=== PATIENT | female | born 1960 | race Caucasian/White ===

== ENCOUNTER → 2016-06-24 | Outpatient (CLI) | payer OTHER ==
[~2016-06-24] MED LIST: DVN80125 PO; HYDR12.56 PO; PANT40TA PO
--- NOTE | 2016-06-24 09:35 | DIAGNOSTIC IMAGING REPORT ---
(BARIUM SWALLOW) ESOPHAGUS CLINICAL HISTORY: R13.10 [id number] COMPARISON STUDY: None. FLUOROSCOPY TIME: 1.1 minute. 25 images submitted.. FINDINGS: The patient swallowed barium without difficulty. The contours of the hypopharynx are within normal limits. The esophagus is normal in course and caliber. Small hiatus hernia. Mild esophageal dysmotility. The barium tablet passed without difficulty. Severe gastroesophageal reflux. IMPRESSION: 1. Severe gastroesophageal reflux. 2. Small hiatus hernia. 3. Mild esophageal dysmotility. Electronically signed by: Chandrakant Javier M.D. 06/24/2016 9:34 AM Dictated Date/Time: 06/24/2016 9:32 AM
== END | disposition home or self-care (01) ==
LOC: C.RAD 08:06
PROVIDERS: ATTEND Family Medicine
DX: R13.10 Dysphagia, unspecified (principal); K21.9 Gastro-esophageal reflux disease without esophagitis; K44.9 Diaphragmatic hernia without obstruction or gangrene; K22.4 Dyskinesia of esophagus

== ENCOUNTER 2016-11-02 13:57 | Emergency (ER) | payer OTHER ==
[~2016-11-02] VITALS: Ht 170.2 cm; Wt 110.8 kg
[~2016-11-02 13:57] MED LIST changes: -PANT40TA PO
[2016-11-02 14:02] VITALS: Ht 170.2 cm; Wt 110.8 kg
[2016-11-02] MEDS ORDERED: ASPIRIN 81 MG CHEW PO STA (14:17)
--- NOTE | 2016-11-02 14:21 | EMERGENCY ROOM VISIT NOTE ---
History First contact with patient: 14:09 Chief Complaint: CHEST PAIN Stated Complaint: CHEST PAINS, ARM AND NECK PAIN History of Present Illness The patient is a 56 year old female who presents to the Emergency Room via private vehicle accompanied by family with complaints of "chest pain, arm and neck pain". The patient states that yesterday she was agitated/angry around 7 or 8 PM when she developed substernal chest pain. She states that it was not with exertion. She states that since then she has had intermittent pain in the same region as well as pain to the left shoulder and left side of the neck. She rates her current pain as a 5/10. She is never had this before. She states that the pain is not worsened with activity. She doesn't history of blood clots, history of having this before, lung problems. She is unsure if there is associated shortness of breath. She feels as though she is anxious, but has no history of anxiety. She does have a history of high blood pressure. She denies any fevers, chills, nausea or diaphoresis. She denies any chance of . Review of Systems A complete 10-point Review of Systems was discussed with the patient, with pertinent positives and negatives listed in the History of Present Illness. All remaining Review of Systems questions can be considered negative unless otherwise specified. Past Medical/Surgical History High blood pressure, stomach problems, hysterectomy, ORIF. Family History Heart disease, high blood pressure. Social History Smoking Status: Former Smoker Social History: Patient lives at home with daughter and son. Patient feels safe at home. She denies alcohol and tobacco use. Current/Historical Medications Scheduled Hydrochlorothiazide (Hctz), 12.5 MG PO DAILY Pantoprazole (Protonix), 40 MG PO QPM Valsartan/Hctz (Diovan Hct), 1 TAB PO DAILY Allergies Coded Allergies: Naproxen (Unverified Allergy, Unknown, GUICHOY, 11/02/16) Physical Exam Vital Signs Date Time Temp Pulse Resp B/P (MAP) Pulse Ox O2 Delivery O2 Flow Rate FiO2 11/02/16 17:05 36.7 86 18 131/88 96 11/02/16 16:38 86 18 131/88 96 Room Air 11/02/16 15:38 87 18 148/94 95 Room Air 11/02/16 14:44 94 Room Air 11/02/16 14:41 94 20 137/92 95 Room Air 11/02/16 14:13 88 11/02/16 14:13 99 Room Air 11/02/16 14:02 36.7 102 20 151/102 96 Room Air Physical Exam VITAL SIGNS - Vital signs and nursing notes were reviewed. Patient was found to be afebrile, hypertensive 151/102, so tachycardic and is saturating on room air 96%. GENERAL -56-year-old female appearing her stated age who is in no acute distress. Communicates well with provider and answers questions appropriately. SKIN - Without rashes. No petechial rashes. HEAD - NC/AT. MOUTH/OROPHARYNX - Without perioral cyanosis. LUNGS - Chest wall symmetric without accessory muscle use, intercostals retractions, or central cyanosis. Normal vesicular breath sounds CTA B/L. No wheezes, rales, or rhonchi appreciated. CARDIAC - RRR with S1/S2. No murmur, rubs, or gallops appreciated. ABDOMEN - Abdominal contour without pulsations or visible masses. BS normoactive all four quadrants. No tenderness, palpable masses, hepatosplenomegaly, or ascites noted. EXTREMITIES - No clubbing or peripheral cyanosis. No pretibial edema present. + 5/5 strength noted in UE/LE bilaterally. Medical Decision & Procedures ER Provider Diagnostic Interpretation: CHEST ONE VIEW PORTABLE HISTORY:56 yearsFemaleChest pain COMPARISON: None available TECHNIQUE: Portable upright AP view of the chest FINDINGS: Cardiomediastinal and hilar silhouettes are within normal limits. No pneumothorax, pleural effusion or focal airspace consolidation. Subtle subsegmental left basilar opacity suggests atelectasis. The bones appear grossly intact. Patient obesity is noted. IMPRESSION: Probable left basilar subsegmental atelectasis with otherwise clear chest. The above report was generated using voice recognition software. It may contain grammatical, syntax or spelling errors. Electronically signed by: Nicholas Orona M.D. 11/02/2016 2:33 PM Dictated Date/Time: 11/02/2016 2:32 PM Laboratory Results 11/02/16 14:35 Red Blood Count 5.35, Mean Corpuscular Volume 83.6, Mean Corpuscular Hemoglobin 28.2, Mean Corpuscular Hemoglobin Concent 33.8, Mean Platelet Volume 9.6, Neutrophils (%) (Auto) 57.2, Lymphocytes (%) (Auto) 31.3, Monocytes (%) (Auto) 8.4, Eosinophils (%) (Auto) 2.5, Basophils (%) (Auto) 0.5, Neutrophils # (Auto) 4.50, Lymphocytes # (Auto) 2.47, Monocytes # (Auto) 0.66, Eosinophils # (Auto) 0.20, Basophils # (Auto) 0.04 11/02/16 14:35 Test 11/02/16 14:35 11/02/16 14:39 11/02/16 16:05 White Blood Count 7.88 K/uL (4.8-10.8) Red Blood Count 5.35 M/uL (4.2-5.4) Hemoglobin 15.1 g/dL (12.0-16.0) Hematocrit 44.7 % (37-47) Mean Corpuscular Volume 83.6 fL (80-100) Mean Corpuscular Hemoglobin 28.2 pg (25-34) Mean Corpuscular Hemoglobin Concent 33.8 g/dl (32-36) Platelet Count 325 K/uL (130-400) Mean Platelet Volume 9.6 fL (7.4-10.4) Neutrophils (%) (Auto) 57.2 % Lymphocytes (%) (Auto) 31.3 % Monocytes (%) (Auto) 8.4 % Eosinophils (%) (Auto) 2.5 % Basophils (%) (Auto) 0.5 % Neutrophils # (Auto) 4.50 K/uL (1.4-6.5) Lymphocytes # (Auto) 2.47 K/uL (1.2-3.4) Monocytes # (Auto) 0.66 K/uL (0.11-0.59) Eosinophils # (Auto) 0.20 K/uL (0-0.5) Basophils # (Auto) 0.04 K/uL (0-0.2) RDW Standard Deviation 42.0 fL (36.4-46.3) RDW Coefficient of Variation 13.7 % (11.5-14.5) Immature Granulocyte % (Auto) 0.1 % Immature Granulocyte # (Auto) 0.01 K/uL (0.00-0.02) Prothrombin Time 10.1 SECONDS (9.0-12.0) Prothromb Time International Ratio 0.9 (0.9-1.1) Activated Partial Thromboplast Time 26.4 SECONDS (21.0-31.0) Partial Thromboplastin Ratio 1.0 Anion Gap 7.0 mmol/L (3-11) Est Creatinine Clear Calc Drug Dose 86.9 ml/min Estimated GFR () 78.7 Estimated GFR (Non- 67.9 BUN/Creatinine Ratio 12.9 (10-20) Calcium Level 9.4 mg/dl (8.5-10.1) Total Bilirubin 0.2 mg/dl (0.2-1) Aspartate Amino Transf (AST/SGOT) 21 U/L (15-37) Alanine Aminotransferase (ALT/SGPT) 40 U/L (12-78) Alkaline Phosphatase 71 U/L (45-117) Total Creatine Kinase 99 U/L (26-192) Creatine Kinase MB 1.9 ng/ml (0.5-3.6) Creatine Kinase MB Ratio 1.9 (0-3.0) Total Protein 7.2 gm/dl (6.4-8.2) Albumin 3.5 gm/dl (3.4-5.0) Globulin 3.7 gm/dl (2.5-4.0) Albumin/Globulin Ratio 0.9 (0.9-2) Lipase 124 U/L (73-393) Thyroid Stimulating Hormone (TSH) 2.260 uIu/ml (0.300-4.500) Bedside D-Dimer 241 ng/mlFEU (0-450) Bedside Troponin I < 0.030 ng/ml (0-0.045) Medications Administered Medications (Trade) Dose Ordered Sig/Amanuel Route Start Time Stop Time Status Last Admin Dose Admin Aspirin (Aspirin Chew) 324 mg NOW STAT PO 11/02/16 14:17 11/02/16 14:19 DC 11/02/16 14:40 324 MG Morphine Sulfate (MoRPHine SULFATE INJ) 4 mg NOW STAT IV 11/02/16 15:34 11/02/16 15:36 DC 11/02/16 15:39 4 MG Ondansetron HCl (Zofran Inj) 4 mg NOW STAT IV 11/02/16 15:34 11/02/16 15:36 DC 11/02/16 15:38 4 MG Medical Decision Patient was seen and evaluated as above. After obtaining a thorough history and physical examination IV access was initiated and the above workup was performed. Patient presents to us today with chest pain, arm and neck pain. This began yesterday evening. She has risk factors to include hypertension. She's never had this before. She did not take aspirin prior to arrival therefore was given 324 milligrams of chewable aspirin. Patient's bedside EKG revealed normal sinus rhythm, with left axis deviation, and questionable anterior infarct which may be lead placement or LVH. The patient's troponin were negative 2. Her d-dimer was normal. There is no leukocytosis or anemia. Coags are normal. D-dimer is unremarkable. Potassium slightly low at 3.4, glucose high at 136. CK-MB were normal. Lipase and TSH were normal. Chest x- ray essentially normal with results as above. The EKG did show poor R-wave progression. But given the patient's negative troponin 2 I do believe that she is stable for outpatient management. I do not suspect any active DE, or any other concerning etiologies. I do not suspect PE. Patient case was discussed with my attending. Patient is a follow-up with her family doctor, and was offered admission and respectfully noted that she would prefer to follow -up in the outpatient setting. I do believe that this is reasonable. The patient was educated upon worrisome symptoms in which to return, had questions prior to discharge, and was discharged home in good condition. In evaluation treatment of this patient the following differential diagnoses were entertained: DE, PE, ACS, pericarditis, among others. Impression Primary Impression: Chest wall pain Departure Information Dispostion Home / Self-Care Condition GOOD Referrals Carmen Rey DO (PCP) Patient Instructions [facility] Additional Instructions You have been treated in the Emergency Department your chest, arm and neck pain. Laboratory results and imaging studies have ruled out any emergent causes for your chest pain which would warrant admission or surgery. For pain control, you can use the following [id number] medicines if able to tolerate: - Regular strength (325mg/tab) Tylenol (acetaminophen) 2 tabs every 4-6 hours as needed. Do not exceed 12 tablets in a 24 hour period. Avoid taking more than 3 grams (3000 mg) of Tylenol per day. This includes any other sources of acetaminophen you may take on a regular basis. - Regular strength (200 mg/tab) Advil (ibuprofen) 1-2 tabs every 4-6 hours as needed. Do not exceed a dose of 3200 mg per day. Drink plenty of water and stay well hydrated. As with any trip to the Emergency Department, you should follow-up with your Primary Care Provider from today's visit. Return to the emergency department if your symptoms persist despite treatment plan outlined above or if the following symptoms occur: increased fevers, chills , worsening nausea/vomiting, blood in your stool or urine. Please return to emergency department with any new/concerning symptoms.
--- NOTE | 2016-11-02 14:35 | DIAGNOSTIC IMAGING REPORT ---
CHEST ONE VIEW PORTABLE HISTORY:56 yearsFemaleChest pain COMPARISON: None available TECHNIQUE: Portable upright AP view of the chest FINDINGS: Cardiomediastinal and hilar silhouettes are within normal limits. No pneumothorax, pleural effusion or focal airspace consolidation. Subtle subsegmental left basilar opacity suggests atelectasis. The bones appear grossly intact. Patient obesity is noted. IMPRESSION: Probable left basilar subsegmental atelectasis with otherwise clear chest. The above report was generated using voice recognition software. It may contain grammatical, syntax or spelling errors. Electronically signed by: Nicholas Orona M.D. 11/02/2016 2:33 PM Dictated Date/Time: 11/02/2016 2:32 PM
[2016-11-02 14:44] VITALS: O2SAT 94
[2016-11-02 14:50] LABS: BASO % 0.5 %; BASO ABS # 0.04 K/uL (0-0.2); COMPLETE YES; EOS % 2.5 %; HEMATOCRIT 44.7 % (37-47); IG% 0.1 %; LYMPH % 31.3 %; LYMPH ABS # 2.47 K/uL (1.2-3.4); MEAN CELL VOLUME 83.6 fL (80-100); MEAN CORPUSCULAR HEMOGLOBIN 28.2 pg (25-34); MEAN CORPUSCULAR HGB CONC 33.8 g/dl (32-36); MEAN PLATELET VOLUME 9.6 fL (7.4-10.4); MONO % 8.4 %; NEUT % 57.2 %; PLATELET COUNT 325 K/uL (130-400); RED BLOOD COUNT 5.35 M/uL (4.2-5.4); WHITE BLOOD COUNT 7.88 K/uL (4.8-10.8)
[2016-11-02 14:58] LABS: POINT OF CARE TROPONIN I < 0.030 ng/ml (0-0.045)
[2016-11-02 14:58] LABS: INR 0.9 (0.9-1.1); PROTHROMBIN TIME (PATIENT) 10.1 SECONDS (9.0-12.0)
[2016-11-02 15:08] LABS: BUN/CREATININE RATIO 12.9 (10-20); CALCIUM 9.4 mg/dl (8.5-10.1); CREATININE 0.95 mg/dl (0.60-1.20); POTASSIUM 3.4 mmol/L (3.5-5.1)
[2016-11-02] MEDS ORDERED: PANT40TA PO (15:15)
[2016-11-02 15:21] LABS: ALB/GLOB RATIO 0.9 (0.9-2); CKMB/CK RATIO 1.9 (0-3.0); THYROID STIMULATING HORMONE 2.26 uIu/ml (0.300-4.500)
[2016-11-02] MEDS ORDERED: ONDANSETRON INJ 2 MG/ML 2 ML VIAL IV STA (15:34)
[2016-11-02] MEDS ORDERED: MoRPHine SULFATE 4 MG/ML 1 ML CARP\\VIAL IV STA (15:34)
[2016-11-02 17:05] VITALS: BP 131/88; PULSE 86; TEMP 36.7; O2SAT 96
== END 2016-11-02 17:04 | disposition home or self-care (01) ==
LOC: C.EDB 13:59 → C.EDA 17:04
DX: R07.89 Other chest pain (principal); M79.602 Pain in left arm; M25.512 Pain in left shoulder; M54.2 Cervicalgia; I10 Essential (primary) hypertension; K92.9 Disease of digestive system, unspecified

== ENCOUNTER → 2017-07-02 | Outpatient (CLI) | payer OTHER ==
[~2017-07-02] MED LIST changes: +PANT40TA PO
== END | disposition home or self-care (01) ==
LOC: C.PATHSPEC 17:54
PROVIDERS: ATTEND Ophthalmology
DX: D23.12 Other benign neoplasm of skin of left eyelid, including canthus (principal)

== ENCOUNTER 2023-06-17 06:02 | Observation (INO) ==
--- NOTE | 2023-05-31 11:31 | PAT Medication Instructions ---
Medication Instructions Date of Service May 31, 2023 Home Medications Medication Instructions Recorded blood sugar diagnostic (Blood #100 ea 05/31/20 Glucose Test strips) blood-glucose meter (Blood Glucose #1 ea 05/31/20 Monitoring kit) ondansetron 4 mg disintegrating 4 mg PO Q8H PRN nausea and 02/05/23 tablet vomiting #30 tabs blood sugar diagnostic (OneTouch #100 ea 02/16/23 Verio test strips) blood-glucose meter (OneTouch #1 ea 02/16/23 Verio Flex Start kit) metformin 500 mg tablet 1,000 mg (2 x 500 mg) PO BID #360 05/11/23 tabs pantoprazole 40 mg tablet,delayed 40 mg PO BID #180 tabs 05/28/23 release acyclovir 5 % topical ointment (Zovirax) 1 applic topical UD PRN ondansetron 4 mg disintegrating tablet 4 mg PO Q8H PRN hydrochlorothiazide 12.5 mg capsule 12.5 mg PO HS ibuprofen 200 mg capsule (Motrin IB) 400 mg PO HS metoprolol succinate 100 mg tablet,extended release 24 hr 100 mg PO HS rosuvastatin 10 mg tablet 10 mg PO HS metformin 500 mg tablet 1,000 mg (2 x 500 mg) PO BID amlodipine 5 mg tablet 5 mg PO HS magnesium glycinate 100 mg tablet (Mag Glycinate) 120 mg PO HS pantoprazole 40 mg tablet,delayed release 40 mg PO BID semaglutide 1 mg/dose (4 mg/3 mL) subcutaneous pen injector 1 mg subcut WK valsartan 160 mg-hydrochlorothiazide 12.5 mg tablet 1 tab PO HS STOP 7 days before surgery semaglutide 1 mg/dose (4 mg/3 mL) subcutaneous pen injector 1 mg subcut WK ASK your surgeon for instructions ibuprofen 200 mg capsule (Motrin IB) 400 mg PO HS STOP taking 24 hours before surgery acyclovir 5 % topical ointment (Zovirax) 1 applic topical UD PRN DO NOT take the morning of surgery metformin 500 mg tablet 1,000 mg (2 x 500 mg) PO BID Take morning of surgery With a small sip of water, OTHERWISE NOTHING TO EAT OR DRINK AFTER MIDNIGHT: ondansetron 4 mg disintegrating tablet 4 mg PO Q8H PRN(if needed) pantoprazole 40 mg tablet,delayed release 40 mg PO BID Take evening before surgery ondansetron 4 mg disintegrating tablet 4 mg PO Q8H PRN(if needed) hydrochlorothiazide 12.5 mg capsule 12.5 mg PO HS metoprolol succinate 100 mg tablet,extended release 24 hr 100 mg PO HS rosuvastatin 10 mg tablet 10 mg PO HS metformin 500 mg tablet 1,000 mg (2 x 500 mg) PO BID amlodipine 5 mg tablet 5 mg PO HS magnesium glycinate 100 mg tablet (Mag Glycinate) 120 mg PO HS pantoprazole 40 mg tablet,delayed release 40 mg PO BID valsartan 160 mg-hydrochlorothiazide 12.5 mg tablet 1 tab PO HS Other Notes If you have any questions please call us at [phone] or [phone] or [phone] or [phone]
--- NOTE | 2023-06-03 15:18 | Anesthesiology Consultation ---
Date of Service June 03, 2023 Assessment & Plan (1) Encounter for pre-operative examination: - Check BSG AM DOS - Infectious disease screening: Per assessment on 06/03/23: No known infectious disease contacts or current infectious disease symptoms. No noted recent Covid positive test result. - Ozempic instructions: Patient takes on . DOS 06/17/23. Advised last dose to be 06/10/23- patient voiced understanding. - Cardiology visit (08/28/22): "Longstanding.. hypertension.. Obesity.. Acute COVID infection/pneumonitis initial diagnosis April 10, 2020.. Hyperglycemia - patient attributes this to COVID treatment causing her to be insulin resistant. Has PCP f/u this summer to discuss.. dyslipidemia.. BP improved with titration of metoprolol. She was agreeable to starting Crestor and script previously sent.. Low sodium diet encouraged. Continue valsartan/HCTZ combination and HCTZ 12.5 mg. Recommend regular aerobic exercise. [place] goal would be minimum of 30 minutes done daily. Exercise can be done in divided time periods if needed. Told to avoid extremes in temperature. Future weight loss surgery being planned/contemplated. Likely not till early 2023. Starting program in [place]. Given cardiac risk factors, will need updated stress test. Currently asymptomatic. Will await return visit in the fall and arrange. She should f/u with PCP about elevated glucose readings." - PCP visit (03/25/23): "Diabetes mellitus, type 2.. Has been working on control, lost weight.. continue ozempic weekly.. Continue metformin bid.. repeat A1C.. Benign essential hypertension.. stable. continue amlodipine daily.. continue metoprolol.. continue valsartan/HCTZ.. work to follow no added salt diet.. Hyperlipidemia.. Fair control, continue diet/exericse, crestory daily, repeat lipids every 6 mos.. JANETTE (obstructive sleep apnea).. Stable, currently working to use CPAP nightly.. Cholelithiasis.. Noted on US in ED in July 2019.. She is managing w/ diet.. she will call w/ worsening symptoms, consider GS referral at that time.. Urinary incontinence.. Not at goal, following w/ urology, considering surgery.. care per urology" Chart Review Chart Review: Acceptable Risk for Surgery and Patient seen in Pre Admission Testing Teaching & Discussion Pre-Anesthesia Teaching/Discussion Notes: Instructed NPO after midnight before surgery,except medications with 15 cc of water. Medication instructions provided according to the PAT guidelines. History Surgery Operation Date: 06/17/23 09:50 Proposed Procedures p Robotic Assisted Laparoscopic Sacrocolpopexy - Ced Sterling, DO Height/Weight Height: 5 ft 5.5 in Weight: 97.8 kg Allergies Allergy/AdvReac Type Severity Reaction Status Date / Time naproxen AdvReac Unknown Increases Verified 06/04/23 08:45 heart rate Medications Home Medications Medication Instructions Recorded Confirmed Last Taken blood sugar diagnostic (Blood #100 ea 05/31/20 03/25/23 Unknown Glucose Test strips) blood-glucose meter (Blood Glucose #1 ea 05/31/20 03/25/23 Unknown Monitoring kit) acyclovir 5 % topical ointment 1 applic topical UD PRN Cold Sores 09/04/22 05/28/23 Unknown (Zovirax) ondansetron 4 mg disintegrating 4 mg PO Q8H PRN nausea and 02/05/23 05/28/23 Unknown tablet vomiting #30 tabs blood sugar diagnostic (OneTouch #100 ea 02/16/23 03/25/23 Unknown Verio test strips) blood-glucose meter (OneTouch #1 ea 02/16/23 03/25/23 Unknown Verio Flex Start kit) hydrochlorothiazide 12.5 mg capsule 12.5 mg PO HS 03/25/23 05/28/23 Unknown ibuprofen 200 mg capsule (Motrin 400 mg PO HS Pain 03/25/23 05/28/23 Unknown IB) metoprolol succinate 100 mg 100 mg PO HS 03/25/23 05/28/23 Unknown tablet,extended release 24 hr rosuvastatin 10 mg tablet 10 mg PO HS 03/25/23 05/28/23 Unknown metformin 500 mg tablet 1,000 mg (2 x 500 mg) PO BID #360 05/11/23 05/28/23 Unknown tabs amlodipine 5 mg tablet 5 mg PO HS 05/28/23 05/28/23 Unknown magnesium glycinate 100 mg tablet 120 mg PO HS 05/28/23 05/28/23 Unknown (Mag Glycinate) pantoprazole 40 mg tablet,delayed 40 mg PO BID #180 tabs 05/28/23 Unknown release valsartan 160 1 tab PO HS 05/28/23 05/28/23 Unknown mg-hydrochlorothiazide 12.5 mg tablet semaglutide 1 mg/dose (4 mg/3 mL) 1 mg (0.75 mL) subcut WK #3 mL 06/03/23 Unknown subcutaneous pen injector Past Medical History Medical History Benign essential hypertension Cholelithiasis Hx stone, no surgical intervention Diabetes mellitus, type 2 Diverticular disease Fatty infiltration of liver Hiatal hernia Unsure if official diagnosis, not noted on available [facility] chest imaging History of COVID-19 Total x3 03/2020- developed diabetes shortly after Most recent 12/2022 Hyperlipidemia Obesity Sleep apnea Tries to wear but "pulls off" at night Tachycardia Dr. Muñoz Urinary incontinence Exercise / Class Metabolic Activity II 4-5 Yardwork/Stairs/Walk up hill (one FS (no CP, no SOB)) Past Family History Family History Father , Jan 2023 Coronary heart disease Dyslipidemia Prostate cancer Mother Hypertension Son Family history of reaction to anesthesia "turned bright red when having tonsils out" Other No pertinent family history in first degree relatives Denies family history of Ovarian cancer Myocardial infarction Breast cancer Colorectal cancer Past Surgical History Surgical History Family history of reaction to anesthesia Son- turned "bright red" in post-op period after tonsillectomy. No definitive etiology found. No similar issues/reaction for patient personally. H/O removal of thyroglossal duct cyst History of bladder suspension procedure History of blepharoplasty B/L History of colonoscopy History of colonoscopy with polypectomy History of endoscopy History of sinus surgery History of wisdom tooth extraction S/P bilateral breast reduction S/P hysterectomy S/P left knee arthroscopy S/P ORIF (open reduction internal fixation) fracture Left ankle Status post correction of deviated nasal septum Status post endometrial ablation Past Anesthesia History No Family Hx of Anesthesia Complications * Son- turned "bright red" in post-op period after tonsillectomy. No definitive etiology found. No similar issues/reaction for patient personally. History of PONV No Hx of PONV and Hx of Motion Sickness (Rare) Social History Smoking Status: Former smoker tobacco type: cigarettes Smoking cigarettes per day: Ages [age] Do You Dip or Chew Tobacco: No Hx Alcohol Use: Yes alcohol intake frequency: holidays/special occasions only (very rarely) Hx Substance Use: No substance use type: does not use Physical Exam Vital Signs BP 106/71 P 75 TEMP SP02 95%RA RESP 16 Physical Full cervical extension range of motion. Full TMJ range of motion. TMD 3 finger breaths Mallampati Score Dentition: intact, several ceowns/caps Lungs: clear throughout to auscultation Cardiac: regular rate and rhythm, no murmurs noted Spine: normal Carotid arteries: negative bruit Extremities: no LE edema Lab Results Anesthesia Preop Results Results Anesthesia Widget: WBC 7.72 K/ul (4.8-10.8) 06/03/23 Hgb 13.9 g/dl (12.0-16.0) 06/03/23 Hct 40.7 % (37.0-47.0) 06/03/23 Plt 339 K/uL (130-400) 06/03/23 Na 138 mmol/L (136-145) 06/03/23 K 3.3 mmol/L (3.5-5.1) L 06/03/23 Cl 103 mmol/L (98-107) 06/03/23 CO2 28 mmol/L (21-32) 06/03/23 BUN 14 mg/dl (6-23) 06/03/23 Creat 0.77 mg/dl (0.6-1.2) 06/03/23 Glucose Level 147 mg/dl (70-99(Fasting)) H 06/03/23 HA1c 6.1 % (4.5-5.6) H 06/03/23 Testing Laboratory Results Urine culture (06/03/23)- pending Electrocardiogram Date: 07/03/22 NSR at 99bpm. LAD. Chest X-Ray Date: 06/03/23 FINDINGS: Lung volumes are normal. Lungs are clear. There is no pneumothorax or pleural effusion. Cardiac size is normal. Mediastinal contours are normal. There is no evidence for pulmonary edema. IMPRESSION: No acute cardiopulmonary findings. Echocardiogram Date: 06/04/20 LVEF 55-59%. Mildly increased cLV wall thickness. Grade I DD. No significant valvular disease.
[2023-06-17] MEDS ORDERED: LIDOCAINE 2% 2 ML VIAL/AMP(20MG/ML) INFIL ONE (06:48)
[2023-06-17] MEDS ORDERED: PROPOFOL IV EMULSION 10 MG/ML 20 ML VIAL IV ONE (06:48)
[2023-06-17] MEDS ORDERED: ROCURONIUM BROMIDE 10 MG/ML 5 ML VIAL IV ONE (06:48)
[2023-06-17] MEDS ORDERED: MIDAZOLAM HCL 1 MG/ML 2ML VIAL ONE (06:48)
[2023-06-17] MEDS ORDERED: ONDANSETRON INJ 2 MG/ML 2 ML VIAL ONE (06:48)
[2023-06-17] MEDS ORDERED: DEXAMETHASONE SOD INJ 4 MG/ML VIAL ONE (06:48)
[2023-06-17] MEDS ORDERED: fentaNYL citrate PF 100 MCG/2 ML VIAL ONE (06:49)
[2023-06-17] MEDS: LR 15ML/HR IV SCH (06:53)
[2023-06-17] MEDS ORDERED: ACETAMINOPHEN 1000 MG/100 ML IV IV ONE (06:57)
--- NOTE | 2023-06-17 07:05 | History & Physical Bridge Note ---
Date of Service June 17, 2023 History & Physical Bridge Note I have examined the patient, reviewed the History & Physical and in the interval since the performance of the History & Physical I have noted the following changes of clinical significance: no changes noted
[2023-06-17] MEDS ORDERED: PROMETHAZINE HCL 6.25 MG in SODIUM CHLORIDE 0.9% 50 ML IV PRN (07:30)
[2023-06-17] MEDS ORDERED: ATROPINE SULFATE 0.1 MG/ML 10ML SYR IV PRN (07:30)
[2023-06-17] MEDS ORDERED: ePHEDrine sulfate 50 MG/ML AMP IV PRN (07:30)
[2023-06-17] MEDS: ceFAZolin 2000MG 2,000 MG/15 ML SYR IV SCH ×2 (07:35→16:10)
[2023-06-17] MEDS ORDERED: PHENYLEPHRINE 100MCG/ML 10ML SYR IV ONE (08:13)
[2023-06-17] MEDS ORDERED: ePHEDrine sulfate 50 MG/5 ML SYR ONE (08:26)
[2023-06-17] MEDS: PREMARIN VAG CRM 14 APPLN/30 GM TUBE ONE (08:36)
[2023-06-17] MEDS: ceFAZolin 330 MG/ML 1 GM VIAL ONE (08:36)
[2023-06-17] MEDS ORDERED: ALBUMIN HUMAN 5% 12.5 GM/250 ML VIAL IV ONE (09:04)
[2023-06-17] MEDS ORDERED: SUGAMMADEX SODIUM 200 MG/2 ML VIAL IV ONE (10:38)
[2023-06-17] MEDS: BUPIVACAINE 0.5 % 5 MG/1 ML MPF 30ML VIAL ONE (10:45)
[2023-06-17] MEDS ORDERED: ALBUTEROL HFA 8 GM INHALER INH ONE (11:04)
--- NOTE | 2023-06-17 11:18 | Operative Report ---
PG Post Operative Report Pre & Post Diagnosis Operation Date: 06/17/23 07:30 Pre-Op Diagnosis: Urinary Incontience, Prolapse of Female Pelvic Organ Post-Op Diagnosis: Urinary Incontience, Prolapse of Female Pelvic Organ I identified the patient and participated in the time-out.: Yes Procedure Operation Date: 06/17/23 07:30 Actual Procedures p Robotic Assisted Laparoscopic Sacrocolpopexy(Not Applicable) - Ced Sterling DO Surgeon Ced Sterling, II, DO Metal Neutralizer Mary Lou MCGINNIS Estimated Blood Loss 10 Findings Consistent with Post-Op Diagnosis Severe Pelvic organ prolapse with significant apical displacement and posterior wall prolapse. Grade 4 apical and posterior prolapse significantly improved after procedure. Specimens None Drains 18 Fr Tanner catheter. Anesthesia Type General Complications none Disposition Disposition: Recovery Room Indications Patient with Severe pelvic floor prolapse with significant apical prolapse and rectocele. Risk and benefits were discussed at length. Patient elected to undergo robotic assisted laparoscopic sacrocolpopexy with mesh insertion. Description of Procedure The patient was brought to the operative suite and placed under general endotracheal intubation anesthesia in the supine position. The patient was transferred to the dorsal lithotomy position. At this point, the patient prepped and draped in the usual sterile fashion and a timeout was completed. Preoperative antibiotics of Ancef 2 grams had been given. SONIA's and SCD's were placed on the patient's lower extremities. A catheter was placed using sterile technique. An incision was made above the umbilicus and then a Veress needle was used to obtain access to the abdomen. Proper position was confirmed with the drop test and low initial insufflation pressure. The abdomen was insufflated with CO2 to a pressure of 12-15 mmHg. An 8 mm robotic port was placed in the incision and the robotic camera was inserted. The abdominal cavity was surveyed, demonstrating some sigmoid adhesions. There was no injury to abdominal viscera. The remaining robotic ports were placed under direct visualization, with 2 robotic ports on the left side and 1 robotic port on the right. A 12 mm assistant manager bilingual port was placed on the right side as well. RAS Covarrubias acted as the bedside assistant manager bilingual for the duration of the case. She assisted with gaining access, providing retraction and suction. Passing in sutures and applying clips as needed. Assisted with displacement/positioning of the vaginal vault. She assisted with closing as well. At this point, I transitioned to the robotic console. The small bowel was mobilized and the multiple adhesions of the sigmoid colon were freed with mainly blunt and sharp cold dissection. I sharply divided the sigmoid adhesions to gain some mobility of the colon. A [place] vaginal manipulator was selected. Survey of the pelvis identified an appropriate location to be able to place the mesh and to tunnel the tail to the sacrum. I then turned my attention to the vaginal dissection. With the vagina directed posteriorly, the plane between the bladder and the vagina was established using sharp dissection with judicious cautery. There was significant adhesion of the anterior portion but a largely bloodless plane was achieved both anteriorly and posteriorly. The vagina was then directed anteriorly and the posterior dissection was completed. The area between the aortic bifurcation was identified and the overlying peritoneum was incised. Dissection was carried down to expose the anterior aspect of the sacral promontory. There was good hemostasis. The peritoneum was then incised down to the vaginal tissue to allow coverage of the mesh tail. The mesh was then introduced after being soaked in cefazolin irrigation solution. I secured both the anterior and posterior aspects of the Y portion of the mesh at the vaginal dissection sites using interrupted 2-0 Goretex sutures in an interrupted fashion in four rows of three. The 30 degree up and down scope settings were utilized to secure the mesh. No injuries or areas of concern. The mesh was well secured. The manipulator was removed and the tissue appeared to hold in good position without strain or issues. The severe grade 4 apical and posterior prolapse was significantly improved. The manipulator was replaced. The tail of the mesh was then placed to sit at the anterior aspect of the sacral promontory. Tension was placed on the mesh and the prolapse was inspected from the vaginal introitus until there was a satisfactory reduction of the prolapse. The mesh was then secured in place using the 2-0 Shelly-Andrew sutures x 3 in an interrupted fashion. I then used 2-0 V-lock sutures to close the peritoneum over the mesh starting from the pelvic and presacral dissection areas. There was excellent hemostasis throughout the case without any major issues or concerns. The entire abdomen was inspected. No issues or concerns. The Mesh was completely covered. No major problems. On vaginal exam, there was drastic improvement of the pelvic floor prolapse. The robot was undocked. The 12 mm assistant manager bilingual port was closed at the fascial layer with a Fransisco-Kwong Device and a 1-0 Vicryl suture. The skin incisions were anesthetized with further local and closed with 4-0 Vicryl Monocryl sutures followed by a layer of Dermabond. Vaginal packing with premarin cream was then placed vaginally. The area was cleaned and glue placed on each incision. The patient was cleaned and bandaged, aroused from anesthesia, and transferred to the pacu in stable condition having tolerated the procedure well with no complications. I was present and participated in all aspects of the procedure. Anastasiya MCGINNIS was critical in the portions as mentioned above. Will plan to observe postoperatively and monitor. Tanner to be removed tomorrow as well as vaginal packing. Followup in 2-3 weeks. I attest to the content of the Intraoperative Record and any orders documented therein. Any exceptions are noted below.
[2023-06-17 11:29] LABS: Basophils # (auto) 0.04 K/uL (0.00-0.20); Basophils % (auto) 0.3 %; Eosinophils # (auto) 0.02 K/uL (0.00-0.50); Eosinophils % (auto) 0.1 %; Hematocrit (blood only) 40.7 % (37.0-47.0); Hemoglobin 13.9 g/dl (12.0-16.0); Immature Granulocytes # (auto) 0.07 K/uL (0.01-0.20); Immature Granulocytes % (auto) 0.5 %; Lymphocytes # (auto) 1.23 K/uL (1.20-3.40); Lymphocytes % (auto) 8.5 %; Mean Corpuscular Hemoglobin 27.7 pg (25.0-34.0); Mean Corpuscular Hgb Conc 34.2 g/dL (32.0-36.0); Mean Corpuscular Volume 81.2 fL (80.0-100.0); Mean Platelet Volume 9.9 fL (9.4-12.4); Monocytes # (auto) 0.17 K/uL (0.11-0.59); Monocytes % (auto) 1.2 %; Neutrophils # (auto) 13.02 K/uL (1.40-6.50); Neutrophils % (auto) 89.4 %; Platelet Count 303 K/uL (130-400); RDW Coefficient of Variation 13.9 % (11.5-14.5); RDW Standard Deviation 41.1 fL (36.4-46.3); Red Blood Count 5.01 M/uL (4.20-5.40); White Blood Count 14.55 K/ul (4.8-10.8)
[2023-06-17 11:45] LABS: BUN Creatinine Ratio 18.3 (10-20); Calcium 9.6 mg/dl (8.6-10.3); Creatinine Clr Calc Pharmacy 80.5 ml/min; Est GFR (African American) 89.5 ml/min; Est GFR (Non-African American) 77.2 ml/min; Potassium 2.8 mmol/L (3.5-5.1)
[2023-06-17] MEDS: HYDROmorphone INJ 2 MG/ML SYR/VIAL IV PRN (11:55)
[2023-06-17] MEDS ORDERED: MoRPHine SULFATE 4 MG/ML 1 ML CARP\\VIAL IV PRN (13:07)
[2023-06-17] MEDS ORDERED: oxyCODONE HCL IR 5 MG TAB (IMMEDIATE RELEASE) PO PRN ×2 (13:07)
[2023-06-17] MEDS ORDERED: PHARMACY GLYCEMIC MGMT CONSULT PRN (13:07)
[2023-06-17] MEDS ORDERED: ONDANSETRON 4 MG OD TAB PO PRN (13:07)
[2023-06-17] MEDS ORDERED: MoRPHine SULFATE 2 MG/ML CARP IV PRN (13:07)
[2023-06-17] MEDS: ACETAMINOPHEN 325 MG TAB PO SCH (13:18)
[2023-06-17] MEDS: SODIUM CHLORIDE 0.9% 1,000 ML IV SCH ×2 (13:18→17:30)
--- NOTE | 2023-06-17 13:26 | Pharmacy Report ---
Pharmacy Glycemic Short Note 2 - Date of Service June 17, 2023 - Glycemic Short BSG Results (Last 24 hours): 06/17/23 06/17/23 06/17/23 06:29 11:10 11:12 Glucose 192 H POC Glucose 118 H 187 H OUTPATIENT ANTIDIABETIC REGIMEN: * Metformin 1000 mg PO BIDM * Semaglutide 1 mg SC weekly HbA1c: 6.1% (06/03/23) ASSESSMENT: * TB is a 63 year old female POD #0 s/p robotic laparoscopic sacrocolpopexy * Received 4 mg IV dexamethasone in OR, no ongoing steroids ordered * Fasting BSG of 118 mg/dL w/ postop BSG of 187 mg/dL * Hyperglycemic response to steroids, will give basal and aggressive Novolog for POD #0 PLAN FOR INPATIENT GLYCEMIC CONTROL: * Hold outpatient oral diabetes medications * Basal insulin * Lantus 15 units SC x 1 (~0.2 unit/kg of adjbw) * Reassess in AM * Bolus insulin * NovoLog per scale ACHS or Q6hrs while NPO * Goal Range: Low 110 mg/dL - High 140 mg/dL * Correction Factor: 20 mg/dL/unit * Nutritional / Prandial insulin per carb ratio of 1 unit per 7 grams CHO consumed
[2023-06-17] MEDS ORDERED: GLUCOSE 10 TAB/TUBE PO PRN (13:30)
[2023-06-17] MEDS ORDERED: GLUCAGON FOR INJ 1 MG VIAL IM PRN (13:30)
[2023-06-17] MEDS ORDERED: GLUCOSE 40% GEL 15 GM TUBE PO PRN (13:30)
[2023-06-17] MEDS ORDERED: CARBOHYDRATES FOR HYPOGLYCEMIA PO PRN (13:30)
[2023-06-17] MEDS ORDERED: DEXTROSE 50% 50 ML SYRINGE IV PRN (13:30)
[2023-06-17] MEDS: INSULIN ASPART PER UNIT CHARGE SC SCH (13:55)
[2023-06-17] MEDS: LANTUS PER UNIT CHARGE SC ONE (13:55)
--- NOTE | 2023-06-17 14:18 | Anesthesiology Progress Note ---
Date of Service June 17, 2023 Anesthesia Post Procedure Vital Signs Vital Signs: Temp Pulse Pulse Resp BP Pulse Ox O2 Del Method 06/17/23 13:51 14 98/60 L 94 Nasal Cannula 06/17/23 13:20 80 14 97/59 L 94 Nasal Cannula 06/17/23 13:11 Nasal Cannula 06/17/23 12:55 95 Nasal Cannula 06/17/23 12:50 36.4 C L 85 12 100/62 89 L Nasal Cannula 06/17/23 12:40 85 20 92/55 L 94 Nasal Cannula 06/17/23 12:30 81 18 101/60 96 Nasal Cannula 06/17/23 12:20 36.4 C L 84 18 107/62 96 Nasal Cannula 06/17/23 12:10 82 20 105/51 L 91 Nasal Cannula 06/17/23 12:00 74 16 101/57 L 92 Nasal Cannula 06/17/23 11:55 77 16 103/59 L 92 Nasal Cannula 06/17/23 11:45 76 16 108/53 L 94 Nasal Cannula 06/17/23 11:35 73 16 98/58 L 93 Oxymask 06/17/23 11:25 77 14 105/51 L 97 Oxymask 06/17/23 11:15 72 14 108/54 L 97 Oxymask 06/17/23 11:08 36.0 C L 74 8 L 103/58 L 96 Oxymask 06/17/23 06:32 36.9 C 82 20 115/79 93 Room Air O2 Flow Rate 06/17/23 13:51 4 06/17/23 13:20 4 06/17/23 13:11 4 06/17/23 12:55 4 06/17/23 12:50 2 06/17/23 12:40 3 06/17/23 12:30 3 06/17/23 12:20 3 06/17/23 12:10 4 06/17/23 12:00 4 06/17/23 11:55 4 06/17/23 11:45 4 06/17/23 11:35 6 06/17/23 11:25 6 06/17/23 11:15 10 06/17/23 11:08 10 06/17/23 06:32 Pain Intensity Abdomen: Pain Intensity: 3 Transfer of Care Handoff Completed per policy Notes Mental Status: alert / awake / arousable and participated in evaluation Nausea / Vomiting: adequately controlled Pain: adequately controlled Airway Patency, RR, SpO2: stable & adequate BP & HR: stable & adequate Hydration State: stable & adequate Anesthetic Complications: no major complications apparent and Pt Satisfied with anesthetic care
--- NOTE | 2023-06-17 16:13 | Communication Note ---
Date of Service: June 17, 2023 Contacted by RN that patient's BP at 1450 was 89/50, recheck at 1500 was 85/46, patient asymptomatic. Also reported patient requiring 4 L of supplemental oxygen to maintain saturations in the 90s. Most recent vitals: BP 98/59, HR 76, resp 20, temp 36.4, 90% on 4L nasal cannula Post op labs: Creatinine 0.82, K 2.8, WBC 14.55, hemoglobin 13.9 Patient seen and examined at bedside. She is awake and resting in bed, no apparent distress. She reports some irritation at her urethra from the Tanner catheter, but otherwise denies pain. Tanner patent and draining clear yellow urine. No chest pain or shortness of breath. No dizziness or other complaints at this time. Plan: Stat portable CXR Change IV fluids to D5 1/2 NSS w/ KCL Consult hospital medicine service Will add prn Ketorolac for pain management Will continue to monitor closely
[2023-06-17] MEDS: ONDANSETRON INJ 2 MG/ML 2 ML VIAL IV PRN (16:30)
--- NOTE | 2023-06-17 16:30 | XRay Report ---
SINGLE VIEW CHEST CLINICAL HISTORY: Hypoxia FINDINGS: An AP, portable, upright chest radiograph is compared to study dated 06/03/2023 and correlat ed with chest CT dated 05/17/2020. The cardiomediastinal silhouette is unremarkable. There is left bas ilar atelectasis. The lungs and pleural spaces are otherwise clear. No pneumothorax is seen. The skel etal structures are osteopenic. The bony thorax is grossly intact. IMPRESSION: No acute cardiopulmonary abnormality is identified noting increasing atelectasis at the l eft lung base. ACT 112: Negative or not required by law. Electronically signed by: Stephon Terrazas M.D. 06/17/2023 4:29 PM
[2023-06-17] MEDS: KETOROLAC 30 MG/ML VIAL IV PRN (16:35)
[2023-06-17] MEDS: D5W AND 1/2NSS + 20MEQ KCL 20 MEQ/1,000 ML BAG IV SCH (16:38)
--- NOTE | 2023-06-17 16:55 | Hospitalist Consultation ---
Date of Consultation June 17, 2023 Assessment & Plan (1) Hypoxia: Assessment: 1. Postoperative hypoxemia-mild. Probably on the basis of postoperative atelectasis. Chest x-ray within normal limits. Incentive spirometry. Check ABGs. Get patient up and moving when possible. 2. Postoperative hypokalemia significant 2.8. 3K riders been ordered reassess potassium level later tonight ordered. 3. Rule out hypomagnesemia. Has been ordered and pending. 4. Obstructive sleep apnea. Patient is noncompliant with her CPAP at home. We are offering it here. This could be contributing to her postoperative hypoxemia. 5. Diabetes mellitus type 2. Insulin sliding scales been ordered. Hemoglobin A1c was 6.1 preoperatively. 6. Essential hypertension. Continue home medications when indicated. Currently she has had some mild postoperative hypotension. 7. Gastroesophageal reflux disease continue meds as at home. Plan: As described above. Please refer to orders for further planning. We thank you for the opportunity to go participate in the care of Ms. Pizarro as she convalesces her urological surgery. We have discontinued her home blood pressure medications for now. Once her blood pressure improves we will add these back when appropriate. History of Present Illness Reason for Consultation: Postoperative hypoxia. Attending Physician: Ced Sterling, II, DO History of Present Illness This is a pleasant 63-year-old female who presented to [facility] today to undergo elective urological surgery including robotic assisted laparoscopic sacrocolporexy -per her report and review of the operative report the procedure was routine and the patient tolerated it well. Postoperatively the patient's been hypoxic as low as 90% on 4 L of oxygen nasal cannula. Postoperative chest x-ray was ordered which is essentially within normal limits/unremarkable. Postoperative labs were ordered she is significantly hypokalemic. In addition she has postoperative hyperglycemia. Incentive spirometry been ordered. Arterial blood gas has been ordered and pending. I do feel this is probably atelectasis postoperatively. After incentive spirometry at the bedside her sats are up to 98% on 4 L and regarding titrate oxygen down as tolerated. The patient does not endorse any other symptomatology including chest pain or shortness of breath. 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 D5 with potassium was ordered to replace the potassium by surgery we will go ahead and discontinue this given the hyperglycemia and diabetes mellitus. Will continue the patient on normal saline. Her mucous membranes are dry. She has relative hypotension postoperatively. Will give 1 L bolus of normal saline solution. Will continue the normal saline at 100 cc an hour. We have ordered 3 potassium chloride riders. In addition we will order magnesium level to see if she has concomitant hypomagnesemia accompanied to her hypokalemia. Allergies Allergy/AdvReac Type Severity Reaction Status Date / Time naproxen AdvReac Unknown Increases Verified 06/17/23 06:28 heart rate Home Medications Medication Instructions Recorded Confirmed Type blood sugar diagnostic (Blood #100 ea 05/31/20 03/25/23 Rx Glucose Test strips) blood-glucose meter (Blood Glucose #1 ea 05/31/20 03/25/23 Rx Monitoring kit) acyclovir 5 % topical ointment 1 applic topical UD PRN Cold Sores 09/04/22 05/28/23 History (Zovirax) ondansetron 4 mg disintegrating 4 mg PO Q8H PRN nausea and 02/05/23 06/17/23 Rx tablet vomiting #30 tabs blood sugar diagnostic (OneTouch #100 ea 02/16/23 03/25/23 Rx Verio test strips) blood-glucose meter (OneTouch #1 ea 02/16/23 03/25/23 Rx Verio Flex Start kit) ibuprofen 200 mg capsule (Motrin 400 mg PO HS Pain 03/25/23 06/17/23 History IB) metoprolol succinate 100 mg 100 mg PO HS 03/25/23 06/17/23 History tablet,extended release 24 hr rosuvastatin 10 mg tablet 10 mg PO HS 03/25/23 06/17/23 History metformin 500 mg tablet 1,000 mg (2 x 500 mg) PO BID #360 05/11/23 06/17/23 Rx tabs amlodipine 5 mg tablet 5 mg PO HS 05/28/23 06/17/23 History magnesium glycinate 100 mg tablet 120 mg PO HS 05/28/23 06/17/23 History (Mag Glycinate) pantoprazole 40 mg tablet,delayed 40 mg PO BID #180 tabs 05/28/23 Rx release valsartan 160 1 tab PO HS 05/28/23 06/17/23 History mg-hydrochlorothiazide 12.5 mg tablet semaglutide 1 mg/dose (4 mg/3 mL) 1 mg (0.75 mL) subcut WK #3 mL 06/03/23 Rx subcutaneous pen injector hydrochlorothiazide 12.5 mg capsule 12.5 mg PO HS #90 caps 06/16/23 Rx Patient History Medical History (Updated 06/17/23 @ 16:51 by Derrick Cardona, PhD, DO) Tachycardia Dr. Muñoz Urinary incontinence Hiatal hernia Unsure if official diagnosis, not noted on available [facility] chest imaging Fatty infiltration of liver Obesity Diverticular disease History of COVID-19 Total x3 03/2020- developed diabetes shortly after Most recent 12/2022 Sleep apnea Tries to wear but "pulls off" at night Diabetes mellitus, type 2 Cholelithiasis Hx stone, no surgical intervention Benign essential hypertension Hyperlipidemia Surgical History Family history of reaction to anesthesia Son- turned "bright red" in post-op period after tonsillectomy. No definitive etiology found. No similar issues/reaction for patient personally. History of sinus surgery History of endoscopy History of colonoscopy History of colonoscopy with polypectomy Status post endometrial ablation History of bladder suspension procedure Status post correction of deviated nasal septum History of wisdom tooth extraction History of blepharoplasty B/L H/O removal of thyroglossal duct cyst S/P hysterectomy S/P bilateral breast reduction S/P left knee arthroscopy S/P ORIF (open reduction internal fixation) fracture Left ankle Family History Father , Jan 2023 Coronary heart disease Dyslipidemia Prostate cancer Mother Hypertension Son Family history of reaction to anesthesia "turned bright red when having tonsils out" Other No pertinent family history in first degree relatives Denies family history of Ovarian cancer Myocardial infarction Breast cancer Colorectal cancer Social History Smoking Status: Former smoker Tobacco Type: Cigarettes packs per day: 1; Cigarettes Per Day: Ages 19-27; Second Hand Exposure: No; Do You Dip or Chew Tobacco: No; Hx Alcohol Use: Yes Alcohol Intake Frequency: Monthly or Less Hx Substance Use: No Preferred Language: Danish Communication Ability: Effective Visual Impairment: No Limitations Hearing Ability: Normal Steel Grinder Required: No Beliefs That Will Affect Care: None marital status: Current Living Situation: Family Current Living Situation Comment: son current occupational status: employed current occupation: RN Other Information That Helps Us Care for You: Yes (Please see pat comm note.) Feels Safe at Home: Yes Childhood Exposure to Second-Hand Smoke: No Diet: regular caffeine: Yes during the past year weight has: remained stable Dental Care, Regularly: Yes Physical Activity Frequency: Daily Seatbelt Use: always Sunscreen Use: Yes Assistive Devices: Contacts, CPAP and Glasses Review of Systems Review of Systems: A 10 point review of system was obtained and unless otherwise stated here or in history of present illness are negative and noncontributory to chief complaint. Physical Exam Physical Exam: In General: In general is a 63-year-old female who is alert and oriented x 3, exam she is in no acute distress she has normal postoperative pain not out of proportion to her procedure. Again she does not endorse any chest pain or shortness of breath upon questioning. HEENT: Normocephalic atraumatic pupils are equal round and reactive to light bilaterally. No scleral icterus no conjunctival injection external auditory canals are patent septum is in the midline nose is without discharge oral mucosa is pink and moist without lesion. NECK: Supple no rigidity no lymphadenopathy no thyromegaly no carotid bruits no JVD no masses. HEART: Regular rate and rhythm I do not appreciate any ectopy or rub. No murmur. LUNGS: Clear to auscultation bilaterally and anteriorly with no evidence of adventitious sounds/wheezes rales or rhonchi. ABDOMEN: Soft nontender but exam limited due to her postop nature. Hypoactive bowel sounds.. EXTREMITIES: Intact, no peripheral cyanosis, clubbing or edema. Strength is 5 out of 5 in extremities x4, no pathological reflexes. NEUROLOGICAL: Cranial nerves II through XII are grossly intact with no focal deficit elicited upon examination. No tremor. Results & Data Results & Data Vital Signs (Past 12 Hours) Vital Signs Temp Pulse Pulse Resp BP Pulse Ox O2 Del Method 06/17/23 16:30 103/64 06/17/23 15:23 98/59 L 06/17/23 15:00 85/46 L 06/17/23 14:50 36.4 C L 76 20 89/50 L 90 Nasal Cannula 06/17/23 13:51 14 98/60 L 94 Nasal Cannula 06/17/23 13:20 80 14 97/59 L 94 Nasal Cannula 06/17/23 13:11 Nasal Cannula 06/17/23 12:55 95 Nasal Cannula 06/17/23 12:50 36.4 C L 85 12 100/62 89 L Nasal Cannula 06/17/23 12:40 85 20 92/55 L 94 Nasal Cannula 06/17/23 12:30 81 18 101/60 96 Nasal Cannula 06/17/23 12:20 36.4 C L 84 18 107/62 96 Nasal Cannula 06/17/23 12:10 82 20 105/51 L 91 Nasal Cannula 06/17/23 12:00 74 16 101/57 L 92 Nasal Cannula 06/17/23 11:55 77 16 103/59 L 92 Nasal Cannula 06/17/23 11:45 76 16 108/53 L 94 Nasal Cannula 06/17/23 11:35 73 16 98/58 L 93 Oxymask 06/17/23 11:25 77 14 105/51 L 97 Oxymask 06/17/23 11:15 72 14 108/54 L 97 Oxymask 06/17/23 11:08 36.0 C L 74 8 L 103/58 L 96 Oxymask 06/17/23 06:32 36.9 C 82 20 115/79 93 Room Air O2 Flow Rate 06/17/23 16:30 06/17/23 15:23 06/17/23 15:00 06/17/23 14:50 4 06/17/23 13:51 4 06/17/23 13:20 4 06/17/23 13:11 4 06/17/23 12:55 4 06/17/23 12:50 2 06/17/23 12:40 3 06/17/23 12:30 3 06/17/23 12:20 3 06/17/23 12:10 4 06/17/23 12:00 4 06/17/23 11:55 4 06/17/23 11:45 4 06/17/23 11:35 6 06/17/23 11:25 6 06/17/23 11:15 10 06/17/23 11:08 10 06/17/23 06:32 PG Care Time/CCT Total # of Minutes Spent Total Time Spent with Patient: Total time spent is greater than 50% in coordination of care (as documented) at patient's floor/unit and/or counseling patient: Coding Level of Care Code 05021 IN/OBS CONSULT LVL 4,60M Diagnoses Hypoxia R09.02
[2023-06-17] MEDS: SODIUM CHLORIDE 0.9% 1,000 ML IV ONE (17:03)
[2023-06-17 17:08] LABS: Magnesium 1.5 mg/dl (1.7-2.4)
[2023-06-17] MEDS: POTASSIUM CHLORIDE / WTR 10 MEQ/100 ML PLCT IV SCH (17:30)
[2023-06-17] MEDS: MAGNESIUM SULFATE / D5W 1 GM/100 ML BAG IV SCH (17:30)
[2023-06-17 17:45] LABS: iSTAT Allen Test Pass; iSTAT Art Bld Gas pCO2 Correct 39 mmHg (35-46); iSTAT Art Bld Gas pH Corrected 7.429 (7.35-7.45); iSTAT Arterial Blood Gas HCO3 26 meg/L (19-24); iSTAT Arterial Blood Gas pCO2 39 mmHg (35-46); iSTAT Arterial Blood Gas pH 7.43 (7.35-7.45); iSTAT Arterial Blood Gas pO2 78 mmHg (80-95); iSTAT Arterial Blood Gas pO2 C 78; iSTAT Carbon Dioxide 27 mmol/L (24-31); iSTAT Hematocrit 36 % (37-47); iSTAT Hemoglobin 12.2 g/dl (12.0-16.0); iSTAT Potassium 2.7 mmol/L (3.3-5.0); iSTAT Site L Radial; iSTAT Sodium 142 mmol/L (135-144)
[2023-06-17] MEDS: HEPARIN SOD 5,000 UNIT/0.5 ML VIAL SQ SCH (20:49)
[2023-06-17] MEDS: DOCUSATE SODIUM 100 MG CAP PO SCH (20:50)
[2023-06-17] MEDS: PANTOprazole 40 MG TAB PO SCH (20:51)
[2023-06-17] MEDS: ROSUVASTATIN CALCIUM 10 MG TAB PO SCH (20:51)
[2023-06-17] MEDS ORDERED: amLODIPine BESYLATE 5 MG TAB PO SCH (21:00)
[2023-06-17] MEDS ORDERED: METOPROLOL SUCC 50MG EXT REL TAB PO SCH (21:00)
[2023-06-17] MEDS ORDERED: VALSARTAN/HCTZ 160/12.5MG TAB PO SCH (21:00)
[2023-06-17 23:08] LABS: Calcium 8.8 mg/dl (8.6-10.3); Magnesium 2.1 mg/dl (1.7-2.4); Potassium 3.1 mmol/L (3.5-5.1)
[2023-06-17 23:13] LABS: BUN Creatinine Ratio 17.7 (10-20); Creatinine Clr Calc Pharmacy 106.5 ml/min; Est GFR (African American) 112.8 ml/min; Est GFR (Non-African American) 97.3 ml/min
[2023-06-18 07:35] LABS: Basophils # (auto) 0.02 K/uL (0.00-0.20); Basophils % (auto) 0.1 %; Eosinophils # (auto) 0.01 K/uL (0.00-0.50); Eosinophils % (auto) 0.1 %; Hemoglobin 12.2 g/dl (12.0-16.0); Immature Granulocytes # (auto) 0.08 K/uL (0.01-0.20); Immature Granulocytes % (auto) 0.6 %; Lymphocytes # (auto) 2.04 K/uL (1.20-3.40); Mean Corpuscular Hemoglobin 27.2 pg (25.0-34.0); Mean Corpuscular Volume 82.4 fL (80.0-100.0); Mean Platelet Volume 10.3 fL (9.4-12.4); Monocytes # (auto) 0.87 K/uL (0.11-0.59); Monocytes % (auto) 6.4 %; Neutrophils # (auto) 10.57 K/uL (1.40-6.50); Neutrophils % (auto) 77.8 %; Platelet Count 289 K/uL (130-400); RDW Coefficient of Variation 13.9 % (11.5-14.5); RDW Standard Deviation 41.3 fL (36.4-46.3); Red Blood Count 4.49 M/uL (4.20-5.40); White Blood Count 13.59 K/ul (4.8-10.8)
--- NOTE | 2023-06-18 07:45 | Urology Progress Note ---
Date of Service June 18, 2023 Assessment & Plan (1) Prolapse of female pelvic organs: Plan: Pt POD #1 s/p robotic sacrocolpopexy Post-operative hypotension and hypoxia requiring supplemental oxygen Chest-xray without acute cardiopulmonary findings, some increased atelectasis at the left lung base Afebrile overnight, SBPs 90-100 overnight, remains on 2L NC Received 3 K riders yesterday, repeat K 3.1 yesterday Labs today-Creatinine 0.65, potassium 3.0, WBC 13.59, hemoglobin 12.2 Minimal pain Tanner patent and draining clear yellow-d/c this morning and monitor for void Remove vaginal packing this morning Tolerating clear liquids, will advance diet today Wean oxygen as able Encourage ambulation today Continue incentive spirometer Hospital medicine following - appreciate recs Plan for home later today or tomorrow presuming she progresses as expected Admission and Anticipated Discharge Date Admission Date: June 17, 2023 Subjective Patient seen and examined at bedside this morning. She is awake and resting in bed, no apparent distress. Reports minimal pain. Reports pain is well-managed with ketorolac. Denies nausea, vomiting, fever or chills. She would like to advance diet today. Has not been ambulating yet. Review of Systems Constitutional: as per Subjective / HPI Gastrointestinal: as per Subjective / HPI Genitourinary: as per Subjective / HPI Physical Exam Constitutional: well developed and well nourished; no acute distress Respiratory: no respiratory distress and no labored breathing 2 L O2 via NC Cardiovascular: Extremities: no pedal edema Gastrointestinal (Abdomen): Inspection/Auscultation: abdomen normal to inspection Musculoskeletal: Head/Neck/Chest: normocephalic Skin: Incisions C/D/I, well-approximated with Dermabond Neurologic: moves all extremities and awake Psychiatric: Orientation: alert and oriented x 3 Genitourinary: Tanner patent and draining clear yellow Results & Data Vital Signs (Past 12 Hours) Vital Signs Temp Pulse Resp BP Pulse Ox O2 Del Method O2 Flow Rate 06/18/23 05:48 84 16 93/49 L 95 Room Air 2 06/18/23 02:48 36.7 C 95 H 16 100/60 95 Nasal Cannula 2 06/18/23 01:06 92/57 L 06/17/23 23:00 36.6 C 90 16 87/50 L 95 Nasal Cannula 2 PG Care Time/CCT Total # of Minutes Spent Total Time Spent with Patient: Total time spent is greater than 50% in coordination of care (as documented) at patient's floor/unit and/or counseling patient: Coding Level of Care Code None Diagnoses Prolapse of female pelvic organs N81.9
[2023-06-18 08:01] LABS: Albumin Globulin Ratio 1.7 (0.9-2); Albumin Level 3.6 gm/dl (3.4-5.0); BUN Creatinine Ratio 13.8 (10-20); Bilirubin,Total 0.4 mg/dl (0.2-1.0); Creatinine Clr Calc Pharmacy 101.6 ml/min; Est GFR (African American) 111.1 ml/min; Est GFR (Non-African American) 95.8 ml/min; Globulin 2.1 gm/dl (2.5-4.0); Magnesium 2.1 mg/dl (1.7-2.4); Total Protein 5.7 gm/dl (6.0-8.3)
--- NOTE | 2023-06-18 08:01 | Hospitalist Progress Note ---
Date of Service June 18, 2023 Assessment & Plan (1) Hypoxia: Plan: Postoperative hypoxemia - resolved. This was most likely secondary to postoperative atelectasis. Chest x-ray without acute cardiopulmonary findings, some increased atelectasis at the left lung base on 06/17/23. Continue incentive spirometry. ABGs 06/17/23 - compensated respiratory alkalosis. Patient's O2 sat has remained stable on room air at rest and with ambulation. (2) Hypokalemia: Plan: Postoperative hypokalemia significant 2.8 on 06/17/23. On 06/17/23, 3K riders given and potassium increased to 3.0. Magnesium WNL at 2.1 Additional 3 riders of K and 40 meq PO given - recheck K increased to 3.3 on 06/18/23. Lab work ordered for 06/21/23. Follow-up with PCP next week for potassium and HCTZ management. (3) Diabetes mellitus, type 2: Plan: Continue Insulin sliding scales Hemoglobin A1c was 6.1 preoperatively. (4) JANETTE (obstructive sleep apnea): Plan: Patient is noncompliant with her CPAP at home - we are offering it here. This could be contributing to her postoperative hypoxemia. Recommend consistent CPAP usage. (5) Prolapse of female pelvic organs: Plan: S/p sacrocolpopexy on 06/17/23. Continue following with urology. (6) Hypertension: Plan: Mild postoperative hypotension, home blood pressure meds discontinued for now. Once her blood pressure improves, add home meds back when appropriate. (7) GERD (gastroesophageal reflux disease): Plan: Continue at home medications. Plan CODE STATUS: Full code Admission and Anticipated Discharge Date Admission Date: June 17, 2023 Subjective Patient is post-op day 1 s/p elective robotic sacrocolpopexy for severe pelvic floor prolapse. Per the patient and review of the operative note, the procedure was routine and tolerated well. Postoperatively, the patient was hypoxic as low as 90% on 4 L of oxygen nasal cannula. Postoperative chest x-ray revealed some increased atelectasis at the left lung base. Postoperative labs revealed significant hypokalemia at 2.8. Three riders of K received on 06/17/23, repeat K was 3.1 yesterday. Today, potassium remains 3.0. Additional 3 riders of K and 40 meq of K PO given today, K recheck at 3.3. Mag WNL at 2.1. Patient was afebrile overnight, her BP has improved, she is ambulating well. She had her Tanner catheter removed this morning and has been voiding well throughout the day. She complains of some discomfort from the removal of the vaginal packing earlier this morning. Otherwise she has no complaints. Denies shortness of breath, chest pain, abdominal pain, fatigue, muscle spasms, tingling or numbness. Recommend outpatient PCP follow-up next week to discuss potassium and HCTZ management. Patient is to get lab work on 06/21/2023. Results & Data Results & Data Vital Signs (Past 12 Hours) Vital Signs Temp Pulse Resp BP Pulse Ox O2 Del Method O2 Flow Rate 06/18/23 07:46 81 16 113/64 94 Room Air 06/18/23 05:48 84 16 93/49 L 95 Room Air 2 06/18/23 02:48 36.7 C 95 H 16 100/60 95 Nasal Cannula 2 06/18/23 01:06 92/57 L 06/17/23 23:00 36.6 C 90 16 87/50 L 95 Nasal Cannula 2 Laboratory Results Reviewed CBC Reviewed ABG Reviewed CMP PG Care Time/CCT Total # of Minutes Spent Total Time Spent with Patient: Total time spent is greater than 50% in coordination of care (as documented) at patient's floor/unit and/or counseling patient: Coding Level of Care Code 74482 SUB INP/OBS CARE 3/50MIN Diagnoses Hypoxia R09.02 Hypokalemia E87.6 Type 2 diabetes mellitus without complication, unspecified whether intermediate card tender insulin use E11.9 Diabetes mellitus complication status: without complication Diabetes mellitus nursing home insulin use: unspecified nursing home insulin use status JANETTE (obstructive sleep apnea) G47.33 Uterovaginal prolapse N81.4 Prolapse type: unspecified uterovaginal prolapse Primary hypertension I10 Hypertension type: primary hypertension Gastroesophageal reflux disease, unspecified whether esophagitis present K21.9 Esophagitis presence: esophagitis presence not specified (3) Diabetes mellitus, type 2 Diabetes mellitus complication status: without complication Diabetes mellitus intermediate card tender insulin use: unspecified nursing home insulin use status Qualified Code(s): E11.9 - Type 2 diabetes mellitus without complications (5) Prolapse of female pelvic organs Prolapse type: unspecified uterovaginal prolapse Qualified Code(s): N81.4 - Uterovaginal prolapse, unspecified (6) Hypertension Hypertension type: primary hypertension Qualified Code(s): I10 - Essential (primary) hypertension (7) GERD (gastroesophageal reflux disease) Esophagitis presence: esophagitis presence not specified Qualified Code(s): K21.9 - Gastro-esophageal reflux disease without esophagitis
[2023-06-18] MEDS: POTASSIUM CHLORIDE CRTAB 20 MEQ TABCR PO STA (08:46)
[2023-06-18] MEDS: POTASSIUM CHLORIDE / WTR 10 MEQ/100 ML PLCT IV SCH (08:47)
--- NOTE | 2023-06-22 10:23 | Discharge Summary ---
Date of Service June 22, 2023 Admission HPI Per Admitting Provider Patient with pelvic organ prolapse here for scheduled robotic assisted laparoscopic sacrocolpopexy Admission Exam Per Admitting Provider General: Alert in no acute distress. HEENT: Inspection normal Psychologic: Normal affect. Respiratory: Nonlabored. No use of accessory muscles. Skin: [place] and Dry. No rashes or visible lesions. Principal Diagnosis Prolapse of female pelvic organs Discharge Exam Constitutional well developed and well nourished; no acute distress Respiratory no respiratory distress and no labored breathing Cardiovascular Extremities: no pedal edema Gastrointestinal (Abdomen) Inspection/Auscultation: abdomen normal to inspection Musculoskeletal Head/Neck/Chest: normocephalic Neurologic moves all extremities and awake Psychiatric Orientation: alert and oriented x 3 Discharge Data Allergies Allergy/AdvReac Type Severity Reaction Status Date / Time naproxen AdvReac Unknown Increases Verified 06/21/23 13:42 heart rate Consultations 06/17/23 15:24 Consult Hospitalist Routine Procedures Performed Operation Date: 06/17/23 07:30 Actual Procedures p Robotic Assisted Laparoscopic Sacrocolpopexy(Not Applicable) - Ced Sterling, Hospital Course (1) Prolapse of female pelvic organs: Pt POD #1 s/p robotic sacrocolpopexy Post-operative hypotension and hypoxia requiring supplemental oxygen Chest-xray without acute cardiopulmonary findings, some increased atelectasis at the left lung base Afebrile overnight, SBPs 90-100 overnight, remains on 2L NC Received 3 K riders yesterday, repeat K 3.1 yesterday Labs today-Creatinine 0.65, potassium 3.0, WBC 13.59, hemoglobin 12.2 Minimal pain Tanner patent and draining clear yellow-d/c this morning and monitor for void Remove vaginal packing this morning Tolerating clear liquids, will advance diet today Wean oxygen as able Encourage ambulation today Continue incentive spirometer Hospital medicine following - appreciate recs Plan for home later today or tomorrow presuming she progresses as expected Total Time Total Time Spent Total Time Spent (In Minutes): 29 Discharge Plan Discharge Items Patient Disposition: Home - Self-Care Reason For Visit: Urinary Incontience, Prolapse of Female Pelvic Org Discharge Diagnosis: Prolapse of female pelvic organs Activity: Per Instructions section Lifting: No more than 10 pounds Bathing Comment: Okay to shower after discharge Sexual Activity: Wait until after follow-up appointment Exercise/Sports: Wait until after follow-up appointment Driving/Machine Use: Okay to drive 1 day after discharge Non-emergency contact: Surgeon and Urologist Call non-emergency contact if: your pain is worsening, your temperature is above 101, your wound has increased redness, your wound has increased drainage and your wound pain has increased Follow-up/Referrals: Carmen Rey DO [Primary Care Provider] - Ced Sterling DO [Physician] - 07/07/23 3:00 pm Diet: Carb Consistent or DM2 Addtl Attending Provider Instructions: Please take all medications as prescribed and keep all follow-ups as scheduled. Please call our office at [phone] with any questions, concerns or need to reschedule appointments for any reason. We are happy to assist you. Your post-operative follow-up with Dr. Sterling is on 07/07/2023 at 3 PM. An antibiotic (Bactrim) was sent to your pharmacy to start after discharge. You can alternate Tylenol and Advil as needed for pain. Recommend follow-up with your PCP next week for monitoring your Potassium/repeat lab work. Activity: We recommend having someone with you for the first few days after surgery to help care for you. For the first 2 weeks after surgery, we would like you to get up and walk around your house. However, we recommend limit physical activity that would increase your heart rate. This will allow your body to rest and heal. Take naps if you feel tired. Don't lift anything heavier than 10 pounds, mow the law or ride a bicycle until your follow-up appointment. Please avoid long car rides. Avoid sexual activity until discussed at follow-up. You may see spotting after procedure. Call if you have any heavy bleeding. Home Care: Unless directed otherwise, drink 6 to 8 glasses of water a day (enough to keep your urine light colored). This will also help keep a healthy flow of urine. We recommend using a stool softener for the first two weeks to avoid constipation. Call [facility] at [phone] right away if you have any of the following: Chest pain or trouble breathing (call 911 or go to the hospital) Fever of 101F or higher, uncontrolled vomiting Heavy bleeding, clots Redness, swelling, warmth, or increased pain at your incision site Drainage, pus, or bleeding from your incision Addtl Tableau Report Developer Provider Instructions: Follow-up with PCP next week to discuss HCTZ and potassium management. Also, please get blood work on 06/21/2023 to check your potassium. Pending Studies at Discharge: No Stand-Alone Forms: [facility], Smoking Cessation Medications and DC Order Prescriptions: New sulfamethoxazole-trimethoprim [Bactrim DS] 800-160 mg tablet 1 tab PO BID 5 Days Qty: 10 0RF Continued ondansetron 4 mg tablet,disintegrating 4 mg PO Q8H PRN (Reason: nausea and vomiting) Qty: 30 0RF metformin 500 mg tablet 1,000 mg PO BID Qty: 360 1RF Rx Instructions: 1,000 mg PO twice a day; pantoprazole 40 mg tablet,delayed release (DR/EC) 40 mg PO BID Qty: 180 1RF semaglutide 1 mg/dose (4 mg/3 mL) pen injector 1 mg subcut WK Qty: 3 2RF hydrochlorothiazide 12.5 mg capsule 12.5 mg PO HS Qty: 90 1RF Hold Instructions: PER HOSPITAL INSTRUCTION rosuvastatin 10 mg tablet 10 mg PO HS metoprolol succinate 100 mg tablet extended release 24 hr 100 mg PO HS (DME) blood-glucose meter [OneTouch Verio Flex Start] Kit See Rx Instructions .Route Qty: 1 0RF Rx Instructions: Check blood sugar once daily and as needed (DME) OneTouch Verio test strips Strip See Rx Instructions .Route Qty: 100 3RF Rx Instructions: Check blood sugar once daily and as needed (DME) Blood Glucose Test Strip See Rx Instructions .ROUTE .MEDSUPPLY Qty: 100 1RF Rx Instructions: As directed. Testing BBS TID Dx: R73.9 (DME) blood-glucose meter [Blood Glucose Monitoring] Kit See Rx Instructions .ROUTE .MEDSUPPLY Qty: 1 0RF Rx Instructions: As directed Testing TID Dx: R73.9 acyclovir [Zovirax] 5 % ointment 1 applic topical UD PRN (Reason: Cold Sores) valsartan-hydrochlorothiazide 160-12.5 mg tablet 1 tab PO HS amlodipine 5 mg tablet 5 mg PO HS Hold Instructions: PER HOSPITAL INSTRUCTIONS Mag Glycinate 100 mg Tablet 120 mg PO HS No Action ibuprofen [Motrin IB] 200 mg capsule 400 mg PO BID PRN (Reason: Pain) acetaminophen 500 mg capsule 1,000 mg PO Q6H PRN (Reason: pain) Qty: 1 0RF Discharge Orders: Discharge Order (Routine); Ordered 06/18/23 Ordered By: Anastasiya Barreto Admission Data Admit Date/Time: 06/17/23 11:05 Attending Provider: Ced Sterling Admit Provider: Ced Sterling Primary Care Provider: Carmen Rey Other Providers: Chris Henderson Other Interventions: Discharge Summary Assessment (RN) Last Done: 06/18/23 15:08 Coding Level of Care Code 34704 IN/OBS DISCH 30 MIN/LESS Diagnoses Uterovaginal prolapse N81.4 Prolapse type: unspecified uterovaginal prolapse
== END 2023-06-18 16:46 | disposition home or self-care (01) ==
LOC: ASU 06:02 → INTOOBSV 11:05 → 3E 11:05
DX: Z79.899 Other long term (current) drug therapy; Z87.891 Personal history of nicotine dependence; E87.6 Hypokalemia; Z88.8 Allergy status to other drugs, medicaments and biological substances; N81.89 Other female genital prolapse; E66.9 Obesity, unspecified; Z79.84 Long term (current) use of oral hypoglycemic drugs; G47.33 Obstructive sleep apnea (adult) (pediatric); E11.9 Type 2 diabetes mellitus without complications; I10 Essential (primary) hypertension; K21.9 Gastro-esophageal reflux disease without esophagitis; R32 Unspecified urinary incontinence; R09.02 Hypoxemia

== ENCOUNTER 2024-11-02 15:40 | Inpatient (IN) ==
--- NOTE | 2024-11-02 15:59 | Emergency Department Note ---
Impression & Plan Acute cholecystitis, Chest pain, Abdominal pain ED Provider Note NAME: CARMELITA LAM AGE: 64 SEX: F : 1960 ARRIVES VIA: Walk-In INFORMANT: Patient ED PROVIDER(S): Jj Vicente DO CHIEF COMPLAINT: Epigastric abdominal pain, bloating and chest pain HPI: Patient is a 64-year-old female with a past medical history of GERD, rectocele, cystocele, hypertension, heartburn and diabetes who presents to the ER for pain which has been present for the past 4 days. She notes it feels like gas in her chest and epigastric region. Feels like her previous issues with gallstones. She notes she never had a cholecystectomy. She has been able to eat with it. She has significant pain in the right upper quadrant. Does have nausea. No dysuria urgency or frequency. It is better when she is up moving around. No fevers. ADDITIONAL HISTORY OBTAINED: Per HPI Chronic Medical/Social Conditions Affecting Care: Per HPI PAST MEDICAL HISTORY:See Below PAST SURGICAL HISTORY:See Below FAMILY HISTORY:See Below SOCIAL HISTORY:See Below HOME MEDICATIONS:See Below ALLERGIES:See Below VITALS:See Below PHYSICAL EXAMINATION: GENERAL: Sitting up in bed, alert, well appearing, well nourished, no distress, non-toxic EYE EXAM: normal conjunctiva. OROPHARYNX: mucous membranes are moist NECK: supple, no nuchal rigidity, no adenopathy, non-tender LUNGS: Clear to auscultation. Normal chest wall mechanics HEART: no murmurs, S1 normal and S2 normal ABDOMEN: abdomen soft, TTP in RUQ, normo-active bowel sounds, no masses, no rebound or guarding. UPPER EXTREMITIES: upper extremities are grossly normal. LOWER EXTREMITIES: No pitting edema. NEURO EXAM: Normal sensorium, cranial nerves II-XII grossly intact, normal speech, no gross weakness of arms, no gross weakness of legs. MEDICAL DECISION MAKING: Patient is a 64-year-old female who presents to the ER for chest pain but pain is periumbilical. IV was established and blood work was obtained. IV was established blood work was obtained. Labs show leukocytosis of 15,000. No significant anemia. INR unremarkable. BMP along LFTs bilirubin lipase and troponin was negative. UA with leuks whites and epithelial cells. CT abdomen pelvis did suggest acute cholecystitis. Patient was given IV Zosyn. She was given multiple doses of IV morphine. Case discussed with general surgery Dr. Alhaji Oliva and patient was admitted to her service. Consults/Care Managements Discussions: Per MDM Triage Nursing notes reviewed. Limited review of prior medical records performed Vital Signs: reviewed and remarkable for HTN Differential diagnosis: Cardiac ischemia, aortic dissection, pulmonary embolism, pneumothorax, pneumonia, pericarditis, myocarditis, esophageal rupture, GERD, cholecystitis, pancreatitis, musculoskeletal, as well as other pathologies. Differential diagnoses includes but is not limited to gastritis, peptic ulcer disease, GERD, gallbladder disease, pancreatitis, small bowel obstruction, appendicitis, diverticulitis, hernia, urinary tract infection, torsion, /ectopic (if female), perforation, trauma, infectious. ER treatment provided: See below Diagnostics interpreted by me include EKG and cardiac monitoring as listed below: -Cardiac Monitoring: An order was placed for continuous cardiac monitoring. The monitor shows a rate of 95 with sinus rhythm. -ECG: Sinus rhythm rate of 93 Left axis No PVCs QTc 422 -Laboratory studies:Interpreted by me as stated above in MDM and shown below. Imaging studies: Xrays: As interpreted by me: None CTs show: CT abdomen pelvis shows a large distended gallbladder with multiple stones CT Abdo pelvis per radiology shows acute cholecystitis Procedures:none Critical Care: None Past Med/Surg History Problem List (Updated 11/02/24 @ 21:49 by Jj Vicente DO) Abdominal pain (Acute) Chest pain (Acute) Acute cholecystitis (Acute) Acute cholecystitis Fatty infiltration of liver Hyperlipidemia Vitamin D deficiency GERD (gastroesophageal reflux disease) Hypertension Rectocele Cystocele Prolapse of female pelvic organs Urinary incontinence History of diverticulitis JANETTE (obstructive sleep apnea) (09/2022) dx 09/2022 Heartburn Diabetes mellitus, type [address] Muñoz Urinary incontinence Hiatal hernia Unsure if official diagnosis, not noted on available [facility] chest imaging Obesity Diverticular disease History of COVID-19 Total x3 03/2020- developed diabetes shortly after Most recent 12/2022 Sleep apnea Tries to wear but "pulls off" at night Cholelithiasis Hx stone, no surgical intervention Surgical History S/P nasal septoplasty S/P robot-assisted surgical procedure (06/17/23) robotic assisted sacrocolpopexy Family history of reaction to anesthesia Son- turned "bright red" in post-op period after tonsillectomy. No definitive etiology found. No similar issues/reaction for patient personally. History of sinus surgery History of endoscopy History of colonoscopy History of colonoscopy with polypectomy Status post endometrial ablation History of bladder suspension procedure Status post correction of deviated nasal septum History of wisdom tooth extraction History of blepharoplasty B/L H/O removal of thyroglossal duct cyst S/P hysterectomy S/P bilateral breast reduction S/P left knee arthroscopy S/P ORIF (open reduction internal fixation) fracture Left ankle Family History Father , Jan 2023 Coronary heart disease Dyslipidemia Prostate cancer Mother Hypertension Son Family history of reaction to anesthesia "turned bright red when having tonsils out" Other No pertinent family history in first degree relatives Denies family history of Ovarian cancer Myocardial infarction Breast cancer Colorectal cancer Social History Smoking Status: Never smoker Tobacco Type: Cigarettes Age Started Using Tobacco: 19; Age Quit Using Tobacco: 29; packs per day: 1; Cigarettes Per Day: Ages 19-27; Second Hand Exposure: No; Do You Dip or Chew Tobacco: No; Hx Alcohol Use: Yes Alcohol Intake Frequency: Monthly or Less Hx Substance Use: No Preferred Language: Italian Communication Ability: Effective Visual Impairment: No Limitations Hearing Ability: Normal Fashion Designer Required: No Beliefs That Will Affect Care: None marital status: Current Living Situation: Family Current Living Situation Comment: son current occupational status: employed current occupation: RN Feels Safe at Home: Yes Childhood Exposure to Second-Hand Smoke: No Diet: regular caffeine: Yes during the past year weight has: remained stable Dental Care, Regularly: Yes Physical Activity Frequency: Daily Seatbelt Use: always Sunscreen Use: Yes Assistive Devices: Contacts, CPAP and Glasses Allergies Allergies Allergy/AdvReac Type Severity Reaction Status Date / Time naproxen AdvReac Intermediate Increases Verified 11/02/24 17:21 heart rate Home Meds Home Medications Medication Instructions Recorded Confirmed metoprolol succinate 100 mg 100 mg PO QAM 03/25/23 11/02/24 tablet,extended release 24 hr rosuvastatin 10 mg tablet 10 mg PO HS 03/25/23 11/02/24 ibuprofen 200 mg capsule (Motrin 400 mg PO HS Pain 06/21/23 11/02/24 IB) cholecalciferol (vitamin D3) 25 0 mcg PO DAILY 11/02/24 11/02/24 mcg (1,000 unit) capsule (Vitamin D3) docusate sodium 100 mg capsule 100 mg PO DAILY 11/02/24 11/02/24 (Colace) lysine 500 mg tablet 500 mg PO DAILY 11/02/24 11/02/24 magnesium 250 mg tablet 250 mg PO DAILY 11/02/24 11/02/24 tirzepatide 12.5 mg/0.5 mL 12.5 mg subcut WK 11/02/24 11/02/24 subcutaneous pen injector valsartan 160 1 tab PO DAILY 11/02/24 11/02/24 mg-hydrochlorothiazide 12.5 mg tablet Previous Rx's Medication Instructions Recorded blood sugar diagnostic (Blood #100 ea 05/31/20 Glucose Test strips) blood-glucose meter (Blood Glucose #1 ea 05/31/20 Monitoring kit) blood sugar diagnostic (OneTouch #100 ea 02/16/23 Verio test strips) blood-glucose meter (OneTouch #1 ea 02/16/23 Verio Flex Start kit) acyclovir 5 % topical ointment 1 applic topical 6XD PRN Cold 05/04/24 (Zovirax) Sores #30 grams metformin 500 mg tablet 1,000 mg (2 x 500 mg) PO BID #360 05/29/24 tabs pantoprazole 40 mg tablet,delayed 40 mg PO BID #180 tabs 09/26/24 release Results & Data (ED) Vital Signs Vital Signs - 24 hr 11/02/24 15:44 11/02/24 15:55 11/02/24 18:26 Temperature 36.8 C Temperature Source Temporal Artery Scan Pulse Rate 98 H 97 H Pulse Rate [Apical] 102 H Respiratory Rate 17 20 20 Respiratory Effort / Characteristics Respiratory Depth Respiratory Pattern Blood Pressure 143/83 H Blood Pressure [Left Arm] 136/81 Blood Pressure Mean 103 Blood Pressure Mean [Left Arm] 99 Blood Pressure Position [Left Arm] Sitting Pulse Oximetry 98 97 92 Oxygen Delivery Method Room Air Room Air Room Air Sepsis Recent Fever Within 48 Hours No Sepsis New/Unexplained Change in Mental Status N/A Sepsis Action Taken by Nursing No Action Required 11/02/24 19:00 11/02/24 20:00 11/02/24 20:59 Temperature 36.8 C Temperature Source Oral Pulse Rate 97 H Pulse Rate [Apical] 106 H 100 H Respiratory Rate 20 20 20 Respiratory Effort / Characteristics Non-Labored Spontaneous Non-Labored Spontaneous Respiratory Depth Normal Respiratory Pattern Regular Regular Blood Pressure 114/66 Blood Pressure [Left Arm] 136/81 111/67 Blood Pressure Mean Blood Pressure Mean [Left Arm] 99 81 Blood Pressure Position [Left Arm] Lying Lying Pulse Oximetry 98 93 96 Oxygen Delivery Method Room Air Room Air Room Air Sepsis Recent Fever Within 48 Hours Sepsis New/Unexplained Change in Mental Status Sepsis Action Taken by Nursing Laboratory Data 11/02/24 15:55 11/02/24 15:55 Lab Results 11/02/24 11/02/24 11/02/24 Range/Units 15:50 15:55 20:00 WBC 15.25 H (4.8-10.8) K/ul RBC 5.37 (4.20-5.40) M/uL Hgb 15.0 (12.0-16.0) g/dl Hct 44.9 (37.0-47.0) % MCV 83.6 (80.0-100.0) fL MCH 27.9 (25.0-34.0) pg MCHC 33.4 (32.0-36.0) g/dL RDW Std Deviation 39.2 (36.4-46.3) fL RDW Coeff of Dylon 13.1 (11.5-14.5) % Plt Count 363 (130-400) K/uL MPV 9.3 L (9.4-12.4) fL Immature Gran % (Auto) 0.3 % Neut % (Auto) 77.7 % Lymph % (Auto) 12.3 % [place] % (Auto) 7.5 % Eos % (Auto) 1.9 % Baso % (Auto) 0.3 % Neut # (Auto) 11.83 H (1.40-6.50) K/uL Lymph # (Auto) 1.88 (1.20-3.40) K/uL [place] # (Auto) 1.15 H (0.11-0.59) K/uL Eos # (Auto) 0.29 (0.00-0.50) K/uL Baso # (Auto) 0.05 (0.00-0.20) K/uL Immature Gran # (Auto) 0.05 (0.01-0.20) K/uL PT 10.0 (9.0-12.0) Seconds INR 0.9 (0.9-1.1) APTT 29 (21-31) Seconds PTT Ratio 1.1 Sodium 136 (136-145) mmol/L Potassium 3.5 (3.5-5.1) mmol/L Chloride 99 (98-107) mmol/L Carbon Dioxide 28 (21-32) mmol/L Anion Gap 9 (3-11) BUN 19 (6-23) mg/dl Creatinine 0.72 (0.6-1.2) mg/dl Est Cr Clr Drug Dosing 88.9 ml/min eGFR 94.48 BUN/Creatinine Ratio 26.4 H (10-20) Glucose 103 H (70-99(Fasting)) mg/dl Lactate 1.5 (0.4-2.0) mmol/L Calcium 10.2 (8.6-10.3) mg/dl Total Bilirubin 0.5 (0.2-1.0) mg/dl AST 21 (13-39) U/L ALT 14 (7-52) U/L Alkaline Phosphatase 63 (34-104) U/L Troponin I High Sens 2.6 (0-14) pg/ml Total Protein 8.2 (6.0-8.3) gm/dl Albumin 4.6 (3.4-5.0) gm/dl Globulin 3.6 (2.5-4.0) gm/dl Albumin/Globulin Ratio 1.3 (0.9-2) Lipase 39 (11-82) U/L Urine Color Yellow Urine Appearance Clear (Clear) Urine pH 5.5 (4.5-7.5) Ur Specific [place] 1.028 (1.000-1.030) Urine Protein Negative (Negative) Urine Glucose (UA) Negative (Negative) Urine Ketones Trace H (Negative) Urine Blood Negative (Negative) Urine Nitrite Negative (Negative) Urine Bilirubin Negative (Negative) Urine Urobilinogen Negative (Negative) Ur Leukocyte Esterase 2+ H (Negative) Urine WBC (Auto) 11-20 H (0-5) /hpf Urine RBC (Auto) 0-2 (0-2) /hpf U Hyaline Cast (Auto) 0-2 (0-2) /lpf U Epithel Cells (Auto) 6-10 H (0-2) /hpf Urine Bacteria (Auto) None Seen (None Seen) Urine Comment Administered Medications Sodium Chloride (Nss) 1,000 mls @ 100 mls/hr IV .Q10H NIKOLAI Stop: 11/05/24 19:44 Last Admin: 11/02/24 20:22 Dose: 100 mls/hr Documented By: CDM Ondansetron HCl (Ondansetron Inj 2 Mg/Ml 2 Ml Vial) 4 mg IV Q6H PRN PRN Reason: Nausea And Vomiting Stop: 12/02/24 19:33 Last Admin: 11/02/24 20:19 Dose: 4 mg Documented By: CDM Discontinued Medications Al Hydrox/Mg Hydrox/Simethicone (Aluminum/Magnesium Susp 30 Ml Udc) 30 ml PO NOW STA Stop: 11/02/24 15:56 Last Admin: 11/02/24 16:06 Dose: 30 ml Documented By: QGV Sodium Chloride (Nss) 1,000 mls @ 999 mls/hr IV .Q1H1M ONE Stop: 11/02/24 16:55 Last Infusion: 11/02/24 18:08 Dose: Infused Documented By: Admin: 11/02/24 16:06 Dose: 999 mls/hr Documented By: QGV Piperacillin Sod/Tazobactam Sod (Zosyn) 4.5 gm in 100 mls @ 200 mls/hr IV NOW ONE; Protocol Stop: 11/02/24 18:42 Last Infusion: 11/02/24 19:17 Dose: Infused Documented By: Admin: 11/02/24 18:24 Dose: 200 mls/hr Documented By: QGV Ioversol (Optiray 320 100ml) 93 ml IV ONCE ONE Stop: 11/02/24 17:01 Last Admin: 11/02/24 17:01 Dose: 93 ml Documented By: EAStefan Metoclopramide HCl (Metoclopramide Hcl Inj 5 Mg/Ml 2 Ml Vial) 10 mg IV NOW STA Stop: 11/02/24 15:57 Last Admin: 11/02/24 16:06 Dose: 10 mg Documented By: QGV Morphine Sulfate (Morphine Sulfate 4 Mg/Ml 1 Ml Carp\\Vial) 4 mg IV NOW STA Stop: 11/02/24 15:57 Last Admin: 11/02/24 16:06 Dose: 4 mg Documented By: QGV Morphine Sulfate (Morphine Sulfate 4 Mg/Ml 1 Ml Carp\\Vial) 4 mg IV NOW STA Stop: 11/02/24 18:17 Last Admin: 11/02/24 18:24 Dose: 4 mg Documented By: QGV Imaging Data Radiologist's Impression: Abdomen/Pelvis CT 11/02/24 15:55 CT ABDOMEN and PELVIS with INTRAVENOUS CONTRAST HISTORY: Abdominal pain TECHNIQUE: CT abdomen and pelvis with contrast. IV CONTRAST: 100 mL of OMNIPAQUE 300 ENTERIC CONTRAST: Not Given COMPARISON: CT abdomen pelvis April 15, 2023 FINDINGS: LOWER CHEST: Unremarkable LIVER: No focal lesion identified. Hepatic steatosis and hepatomegaly. GALLBLADDER/BILIARY: Moderately distended gallbladder containing numerous gallstones. Pericholecystic inflammation with mild gallbladder wall thickening and trace pericholecystic fluid. SPLEEN: Unremarkable. PANCREAS: Unremarkable. ADRENALS: Unremarkable. KIDNEYS: Small cortical cysts. No stones or hydronephrosis identified. PERITONEUM/RETROPERITONEUM. No lymphadenopathy by size criteria. No aortic aneurysm. GASTROINTESTINAL: No obstruction. Normal appendix. Colonic diverticulosis without evidence of diverticulitis. REPRODUCTIVE: Redemonstration of findings suggesting pelvic floor relaxation. Status post hysterectomy BONES: No acute findings. IMPRESSION: Findings highly suspicious for acute cholecystitis. Further assessment with abdominal ultrasound and/or HIDA scan may be obtained if clinically indicated. Electronically signed by Finesse Ricketts 11-02-2024 6:01 PM Chest X-Ray 11/02/24 15:55 Clinical History: Chest pain Technique: A frontal view of the chest was obtained Comparison is made to the prior examination dated 06/17/2023 Findings: There are no confluent pulmonary infiltrates. The heart size is within normal limits. No pleural effusion or pneumothorax is seen. There is no definite pulmonary nodule. No fracture is noted. No foreign body is seen Impression: No active disease Electronically signed by Vick Beckford 11-02-2024 4:46 PM Discharge Plan Visit Data Chief Complaint: Chest Pain Stated Complaint: CHEST PAIN, CONCERN ABT GALL BLADDER ED Provider: Jj Vicente Discharge Problem: Acute cholecystitis, Chest pain, Abdominal pain Condition: Fair Discharge Instructions Interventions: ED Discharge Assessment Last Done: 11/02/24 20:59 Forms Stand Alone Forms: [facility] Prescriptions Prescriptions: No Action metformin 500 mg tablet 1,000 mg PO BID Qty: 360 1RF Rx Instructions: 1,000 mg PO twice a day; pantoprazole 40 mg tablet,delayed release (DR/EC) 40 mg PO BID Qty: 180 1RF rosuvastatin 10 mg tablet 10 mg PO HS metoprolol succinate 100 mg tablet extended release 24 hr 100 mg PO QAM (DME) blood-glucose meter [OneTouch Verio Flex Start] Kit See Rx Instructions .Route Qty: 1 0RF Rx Instructions: Check blood sugar once daily and as needed (DME) OneTouch Verio test strips Strip See Rx Instructions .Route Qty: 100 3RF Rx Instructions: Check blood sugar once daily and as needed (DME) Blood Glucose Test Strip See Rx Instructions .ROUTE .MEDSUPPLY Qty: 100 1RF Rx Instructions: As directed. Testing BBS TID Dx: R73.9 (DME) blood-glucose meter [Blood Glucose Monitoring] Kit See Rx Instructions .ROUTE .MEDSUPPLY Qty: 1 0RF Rx Instructions: As directed Testing TID Dx: R73.9 ibuprofen [Motrin IB] 200 mg capsule 400 mg PO HS acyclovir [Zovirax] 5 % ointment 1 applic topical 6XD PRN (Reason: Cold Sores) Qty: 30 0RF docusate sodium [Colace] 100 mg Capsule 100 mg PO DAILY magnesium 250 mg Tablet 250 mg PO DAILY lysine 500 mg Tablet 500 mg PO DAILY cholecalciferol (vitamin D3) [Vitamin D3] 25 mcg (1,000 unit) Capsule 0 mcg PO DAILY Rx Instructions: PT UNSURE OF STRENGTH valsartan-hydrochlorothiazide 160-12.5 mg tablet 1 tab PO DAILY Mounjaro 12.5 mg/0.5 mL pen injector 12.5 mg subcut WK Rx Instructions: MONDAYS Referrals Referrals: Carmen Rey DO [Primary Care Provider] - Discharge Problem: Chest pain Qualifiers: Chest pain type: unspecified Qualified Code(s): R07.9 - Chest pain, unspecified Abdominal pain Qualifiers: Abdominal location: unspecified location Qualified Code(s): R10.9 - Unspecified abdominal pain
[2024-11-02] MEDS: MoRPHine SULFATE 4 MG/ML 1 ML CARP\\VIAL IV STA ×2 (16:06→18:24)
[2024-11-02] MEDS: ALUMINUM/MAGNESIUM SUSP 30 ML UDC PO STA (16:06)
[2024-11-02] MEDS: METOCLOPRAMIDE HCL INJ 5 MG/ML 2 ML VIAL IV STA (16:06)
[2024-11-02] MEDS: SODIUM CHLORIDE 0.9% 1,000 ML IV ONE (16:06)
[2024-11-02 16:12] LABS: Hematocrit (blood only) 44.9 % (37.0-47.0); Hemoglobin 15.0 g/dl (12.0-16.0); Immature Granulocytes # (auto) 0.05 K/uL (0.01-0.20); Immature Granulocytes % (auto) 0.3 %; Mean Corpuscular Hemoglobin 27.9 pg (25.0-34.0); Mean Corpuscular Volume 83.6 fL (80.0-100.0); Platelet Count 363 K/uL (130-400); RDW Standard Deviation 39.2 fL (36.4-46.3); Red Blood Count 5.37 M/uL (4.20-5.40); White Blood Count 15.25 K/ul (4.8-10.8)
[2024-11-02 16:15] LABS: Appearance Urine Clear (Clear); Bacteria Urine Automated None Seen (None Seen); Cast Urine Automated 0-2 /lpf (0-2); Glucose Urine UA Negative (Negative); RBC Urine Automated 0-2 /hpf (0-2)
[2024-11-02 16:37] LABS: Alanine Aminotransferase 14.0 U/L (7-52); Albumin Globulin Ratio 1.3 (0.9-2); Alkaline Phosphatase 63.0 U/L (34-104); Anion Gap 9.0 (3-11); Bilirubin,Total 0.5 mg/dl (0.2-1.0); Blood Urea Nitrogen 19.0 mg/dl (6-23); Calcium 10.2 mg/dl (8.6-10.3); Carbon Dioxide 28.0 mmol/L (21-32); Chloride 99.0 mmol/L (98-107); Creatinine Clr Calc Pharmacy 88.9 ml/min; Globulin 3.6 gm/dl (2.5-4.0); Glucose 103.0 mg/dl (70-99(Fasting)); Lipase 39.0 U/L (11-82); Potassium 3.5 mmol/L (3.5-5.1); Sodium 136.0 mmol/L (136-145); Total Protein 8.2 gm/dl (6.0-8.3)
--- NOTE | 2024-11-02 16:46 | XRay Report ---
Clinical History: Chest pain Technique: A frontal view of the chest was obtained Comparison is made to the prior examination dated 06/17/2023 Findings: There are no confluent pulmonary infiltrates. The heart size is within normal limits. No pleural effusion or pneumothorax is seen. There is no definite pulmonary nodule. No fracture is noted. No foreign body is seen Impression: No active disease Electronically signed by Vick Beckford 11-02-2024 4:46 PM
[2024-11-02] MEDS: OPTIRAY 320 100ml IV ONE (17:01)
--- NOTE | 2024-11-02 18:01 | CT Scan Report ---
CT ABDOMEN and PELVIS with INTRAVENOUS CONTRAST HISTORY: Abdominal pain TECHNIQUE: CT abdomen and pelvis with contrast. IV CONTRAST: 100 mL of OMNIPAQUE 300 ENTERIC CONTRAST: Not Given COMPARISON: CT abdomen pelvis April 15, 2023 FINDINGS: LOWER CHEST: Unremarkable LIVER: No focal lesion identified. Hepatic steatosis and hepatomegaly. GALLBLADDER/BILIARY: Moderately distended gallbladder containing numerous gallstones. Pericholecystic inflammation with mild gallbladder wall thickening and trace pericholecystic fluid. SPLEEN: Unremarkable. PANCREAS: Unremarkable. ADRENALS: Unremarkable. KIDNEYS: Small cortical cysts. No stones or hydronephrosis identified. PERITONEUM/RETROPERITONEUM. No lymphadenopathy by size criteria. No aortic aneurysm. GASTROINTESTINAL: No obstruction. Normal appendix. Colonic diverticulosis without evidence of diverticulitis. REPRODUCTIVE: Redemonstration of findings suggesting pelvic floor relaxation. Status post hysterectomy BONES: No acute findings. IMPRESSION: Findings highly suspicious for acute cholecystitis. Further assessment with abdominal ultrasound and/or HIDA scan may be obtained if clinically indicated. Electronically signed by Finesse Ricketts 11-02-2024 6:01 PM
[2024-11-02] MEDS: PIPERACILLIN/TAZOBACTAM 4.5 GM/100 ML BAG IV ONE (18:24)
--- NOTE | 2024-11-02 19:33 | Surgery Consultation ---
<Statement entered by Mukund Ortiz DO - 11/02/24 20:43> This case has been discussed with the surgical PA Date of Consultation November 02, 2024 Assessment & Plan (1) Acute cholecystitis: Patient is going and admitted on the surgical service due to the findings on imaging and her clinical presentation. Will proceed as follows: Will implement n.p.o. status Will hydrate with IV fluids Analgesia will be provided Antiemetics will be provided We will check repeat labs in the morning to ensure that there is no elevation of her LFTs that would necessitate any additional diagnostic imaging Will check coagulation studies To treat emergency room physician has initiated antibiotics in form of Zosyn and these will be continued The patient is diabetic and will therefore consult the hospitalist for help with management of this condition (I personally discussed the case with the hospitalist and requested this consultation) The patient is tentatively scheduled for cholecystectomy on 11/03/[address] [facility] of [facility] in addition to general surgery Will use SCDs for DVT prevention, no chemical means due to planned surgery Additional recommendations be forthcoming based on her clinical course as unfolds She will be a level 1 full code History of Present Illness Reason for Consultation: Acute cholecystitis History of Present Illness This is a 64-year-old female who presents to the emergency department secondary to right upper quadrant abdominal pain. Patient says that she has a known history of gallstones since approximately 2019. She presented the emergency department today because for approximately the past 3 days the patient has right upper quadrant pain that radiates to her back and the pain became so severe she presented to the emergency department. She has had nausea without vomiting. She denies any fevers, shakes, or chills. She has had prior abdominal surgeries in the form of a hysterectomy and a bladder sling. The patient notes that with her day-to-day activities she leads a fairly active lifestyle and denies any chest pain or shortness of breath with her day-to-day activities. Since arrival to the hospital the patient has had labs and imaging which) reviewed. Chest x-ray showed no evidence of pneumonia. CT scan of the abdomen pelvis showed the patient had a distended gallbladder containing numerous gallstones with pericholecystic inflammation and mild gallbladder wall thickening along with trace pericholecystic fluidthe interpreting radiologist felt that this was highly concerning for acute cholecystitis. Labs included CBC white blood cell count was elevated 15.2. Hemoglobin and hematocrit as well as platelet count were normal. Chemistry profile showed sodium and potassium as well as BUN and creatinine were normal. There is no elevation of patient's LFTs or lipase. Urinalysis did show 2+ leukocyte esterase and 11-20 white blood cells per high-power field. The specimen was negative for bacteria and nitrates. An EKG showed normal sinus rhythm without changes indicative of acute ischemia. At the time my interview she is resting comfortably in bed and she is in no distress Allergies Allergy/AdvReac Type Severity Reaction Status Date / Time naproxen AdvReac Intermediate Increases Verified 11/02/24 17:21 heart rate Home Medications Medication Instructions Recorded Confirmed Type blood sugar diagnostic (Blood #100 ea 05/31/20 05/16/24 Rx Glucose Test strips) blood-glucose meter (Blood Glucose #1 ea 05/31/20 05/16/24 Rx Monitoring kit) blood sugar diagnostic (OneTouch #100 ea 02/16/23 05/16/24 Rx Verio test strips) blood-glucose meter (OneTouch #1 ea 02/16/23 05/16/24 Rx Verio Flex Start kit) metoprolol succinate 100 mg 100 mg PO QAM 03/25/23 11/02/24 History tablet,extended release 24 hr rosuvastatin 10 mg tablet 10 mg PO HS 03/25/23 11/02/24 History ibuprofen 200 mg capsule (Motrin 400 mg PO HS Pain 06/21/23 11/02/24 History IB) acyclovir 5 % topical ointment 1 applic topical 6XD PRN Cold 05/04/24 11/02/24 Rx (Zovirax) Sores #30 grams metformin 500 mg tablet 1,000 mg (2 x 500 mg) PO BID #360 05/29/24 11/02/24 Rx tabs pantoprazole 40 mg tablet,delayed 40 mg PO BID #180 tabs 09/26/24 11/02/24 Rx release cholecalciferol (vitamin D3) 25 0 mcg PO DAILY 11/02/24 11/02/24 History mcg (1,000 unit) capsule (Vitamin D3) docusate sodium 100 mg capsule 100 mg PO DAILY 11/02/24 11/02/24 History (Colace) lysine 500 mg tablet 500 mg PO DAILY 11/02/24 11/02/24 History magnesium 250 mg tablet 250 mg PO DAILY 11/02/24 11/02/24 History tirzepatide 12.5 mg/0.5 mL 12.5 mg subcut WK 11/02/24 11/02/24 History subcutaneous pen injector valsartan 160 1 tab PO DAILY 11/02/24 11/02/24 History mg-hydrochlorothiazide 12.5 mg tablet Patient History Medical History Tachycardia Dr. Muñoz Urinary incontinence Hiatal hernia Unsure if official diagnosis, not noted on available [facility] chest imaging Obesity Diverticular disease History of COVID-19 Total x3 03/2020- developed diabetes shortly after Most recent 12/2022 Sleep apnea Tries to wear but "pulls off" at night Cholelithiasis Hx stone, no surgical intervention Surgical History S/P nasal septoplasty S/P robot-assisted surgical procedure (06/17/23) robotic assisted sacrocolpopexy Family history of reaction to anesthesia Son- turned "bright red" in post-op period after tonsillectomy. No definitive etiology found. No similar issues/reaction for patient personally. History of sinus surgery History of endoscopy History of colonoscopy History of colonoscopy with polypectomy Status post endometrial ablation History of bladder suspension procedure Status post correction of deviated nasal septum History of wisdom tooth extraction History of blepharoplasty B/L H/O removal of thyroglossal duct cyst S/P hysterectomy S/P bilateral breast reduction S/P left knee arthroscopy S/P ORIF (open reduction internal fixation) fracture Left ankle Family History Father , Jan 2023 Coronary heart disease Dyslipidemia Prostate cancer Mother Hypertension Son Family history of reaction to anesthesia "turned bright red when having tonsils out" Other No pertinent family history in first degree relatives Denies family history of Ovarian cancer Myocardial infarction Breast cancer Colorectal cancer Social History Smoking Status: Never smoker Tobacco Type: Cigarettes Age Started Using Tobacco: 19; Age Quit Using Tobacco: 29; packs per day: 1; Cigarettes Per Day: Ages [age]; Second Hand Exposure: No; Do You Dip or Chew Tobacco: No; Hx Alcohol Use: Yes Alcohol Intake Frequency: Monthly or Less Hx Substance Use: No Preferred Language: Kyrgyz Communication Ability: Effective Visual Impairment: No Limitations Hearing Ability: Normal Carpenter Supervisor Required: No Beliefs That Will Affect Care: None marital status: Current Living Situation: Family Current Living Situation Comment: son current occupational status: employed current occupation: RN Feels Safe at Home: Yes Childhood Exposure to Second-Hand Smoke: No Diet: regular caffeine: Yes during the past year weight has: remained stable Dental Care, Regularly: Yes Physical Activity Frequency: Daily Seatbelt Use: always Sunscreen Use: Yes Assistive Devices: Contacts, CPAP and Glasses Review of Systems Review of Systems: All systems reviewed & are unremarkable except as noted in HPI & below Physical Exam Constitutional: WD/WN, vitals as above Eyes: + anicteric sclerae ENMT: Ears: no hearing impairment and no external ear abnormality Subungual jaundice is absent Neck: trachea midline Respiratory: normal respiratory effort; no respiratory distress and no labored breathing Cardiovascular: Rate/Rhythm: regular rate and regular rhythm Gastrointestinal (Abdomen): Abdomen is soft without distention. Patient had marked tenderness in the right upper quadrant with palpation. Be sign is positive there is no rebound te nderness or guarding Musculoskeletal: No calf tenderness Skin: no jaundice Neurologic: moves all extremities Psychiatric: A+Ox3, euthymic affect Results & Data Vital Signs (Past 12 Hours) Vital Signs Temp Pulse Pulse Resp BP BP Pulse Ox 11/02/24 19:00 106 H 20 136/81 98 11/02/24 18:26 102 H 20 136/81 92 11/02/24 15:55 97 H 20 97 11/02/24 15:44 36.8 C 98 H 17 143/83 H 98 O2 Del Method 11/02/24 19:00 Room Air 11/02/24 18:26 Room Air 11/02/24 15:55 Room Air 11/02/24 15:44 Room Air PG Care Time/CCT Total # of Minutes Spent Total Time Spent with Patient: Total time spent is greater than 50% in coordination of care (as documented) at patient's floor/unit and/or counseling patient: Coding Level of Care Code 52103 IN/OBS CONSULT LVL 5,80M Diagnoses Acute cholecystitis K81.0
--- NOTE | 2024-11-02 19:55 | Hospitalist Consultation ---
Date of Consultation November 02, 2024 Assessment & Plan (1) Acute cholecystitis: (2) Sepsis: (3) GERD (gastroesophageal reflux disease): (4) Diabetes mellitus, type 2: (5) Heartburn: Plan 64 year old female presents to the ER with right upper quadrant pain #Sepsis / acute cholecystics SIRS criteria met with tachycardia and WBC. Source = acute cholecystitis. Blood cultures and lactate ordered, BP stable Continue antibiotics per surgery recommendations Planned cholecystectomy tomorrow, NPO, IV fluids #T2DM HbA1C 5.5 [06/08/24] Novolog for correction only Hold metformin #GERD Controlled Continue pantoprazole 40mg PO BID #Hypertension Continue metoprolol pre-operatively Hold valsartan/HCTZ pre-operatively #Hyperlipidemia Continue rosuvastatin VTE Prophylaxis - deferred to primary surgical team Disposition - admit to med/surg History of Present Illness Reason for Consultation: med/DM mgt Attending Physician: Dr Ortiz History of Present Illness Shauna Pizarro is a 64 year old female who presents to the ER with chest/abdominal pain radiating to her back with associated nausea. She reports having a known history of gallstones which she felt the same symptoms flare up 3 days ago but still occurring intermittently mostly in the right upper quadrant of her abdomen. No change with eating. Today as she was leaving work it became much more painful and very hard for her to get in the car to drive here. She describes the feeling of being blown up with gas from her chest all through her abdominal area. Currently she has no pain with rest but pain on any movement with sharp pain in right upper quadrant of abdomen. She took Motrin 600mg at 9am this morning without relief. CT confirmed acute cholecystitis and general surgery have admitted the patient with plans on cholecystectomy tomorrow. Medicine consulted for medical and diabetes management. 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 She takes metoprolol for this. Type 2 diabetes on Mounjaro on Mondays and metformin. HbA1C 5.5 in May Heartburn under control with pantoprazole, also takes PRN Zofran Allergies Allergy/AdvReac Type Severity Reaction Status Date / Time naproxen AdvReac Intermediate Increases Verified 11/02/24 17:21 heart rate Home Medications Medication Instructions Recorded Confirmed Type blood sugar diagnostic (Blood #100 ea 05/31/20 05/16/24 Rx Glucose Test strips) blood-glucose meter (Blood Glucose #1 ea 05/31/20 05/16/24 Rx Monitoring kit) blood sugar diagnostic (OneTouch #100 ea 02/16/23 05/16/24 Rx Verio test strips) blood-glucose meter (OneTouch #1 ea 02/16/23 05/16/24 Rx Verio Flex Start kit) metoprolol succinate 100 mg 100 mg PO QAM 03/25/23 11/02/24 History tablet,extended release 24 hr rosuvastatin 10 mg tablet 10 mg PO HS 03/25/23 11/02/24 History ibuprofen 200 mg capsule (Motrin 400 mg PO HS Pain 06/21/23 11/02/24 History IB) acyclovir 5 % topical ointment 1 applic topical 6XD PRN Cold 05/04/24 11/02/24 Rx (Zovirax) Sores #30 grams metformin 500 mg tablet 1,000 mg (2 x 500 mg) PO BID #360 05/29/24 11/02/24 Rx tabs pantoprazole 40 mg tablet,delayed 40 mg PO BID #180 tabs 09/26/24 11/02/24 Rx release cholecalciferol (vitamin D3) 25 0 mcg PO DAILY 11/02/24 11/02/24 History mcg (1,000 unit) capsule (Vitamin D3) docusate sodium 100 mg capsule 100 mg PO DAILY 11/02/24 11/02/24 History (Colace) lysine 500 mg tablet 500 mg PO DAILY 11/02/24 11/02/24 History magnesium 250 mg tablet 250 mg PO DAILY 11/02/24 11/02/24 History tirzepatide 12.5 mg/0.5 mL 12.5 mg subcut WK 11/02/24 11/02/24 History subcutaneous pen injector valsartan 160 1 tab PO DAILY 11/02/24 11/02/24 History mg-hydrochlorothiazide 12.5 mg tablet Patient History Medical History Tachycardia Dr. Muñoz Urinary incontinence Hiatal hernia Unsure if official diagnosis, not noted on available [facility] chest imaging Obesity Diverticular disease History of COVID-19 Total x3 03/2020- developed diabetes shortly after Most recent 12/2022 Sleep apnea Tries to wear but "pulls off" at night Cholelithiasis Hx stone, no surgical intervention Surgical History S/P nasal septoplasty S/P robot-assisted surgical procedure (06/17/23) robotic assisted sacrocolpopexy Family history of reaction to anesthesia Son- turned "bright red" in post-op period after tonsillectomy. No definitive etiology found. No similar issues/reaction for patient personally. History of sinus surgery History of endoscopy History of colonoscopy History of colonoscopy with polypectomy Status post endometrial ablation History of bladder suspension procedure Status post correction of deviated nasal septum History of wisdom tooth extraction History of blepharoplasty B/L H/O removal of thyroglossal duct cyst S/P hysterectomy S/P bilateral breast reduction S/P left knee arthroscopy S/P ORIF (open reduction internal fixation) fracture Left ankle Family History Father , Jan 2023 Coronary heart disease Dyslipidemia Prostate cancer Mother Hypertension Son Family history of reaction to anesthesia "turned bright red when having tonsils out" Other No pertinent family history in first degree relatives Denies family history of Ovarian cancer Myocardial infarction Breast cancer Colorectal cancer Social History Smoking Status: Former smoker Tobacco Type: Cigarettes Age Started Using Tobacco: 19; Age Quit Using Tobacco: 29; packs per day: 1; Cigarettes Per Day: Ages 19-27; Second Hand Exposure: No; Do You Dip or Chew Tobacco: No; Hx Alcohol Use: No Hx Substance Use: No Preferred Language: Bengali Communication Ability: Effective Visual Impairment: No Limitations Hearing Ability: Normal Spinner Open End Required: No Beliefs That Will Affect Care: None marital status: Current Living Situation: Family Current Living Situation Comment: son current occupational status: employed current occupation: RN Feels Safe at Home: Yes Childhood Exposure to Second-Hand Smoke: No Diet: regular caffeine: Yes during the past year weight has: remained stable Dental Care, Regularly: Yes Physical Activity Frequency: Daily Seatbelt Use: always Sunscreen Use: Yes Assistive Devices: Contacts, CPAP and Glasses Review of Systems Review of Systems: All systems reviewed & are unremarkable except as noted in HPI & below Physical Exam Constitutional: WD/WN, vitals as above ENMT: external ear and nose normal, oropharynx normal Respiratory: normal respiratory effort, lungs clear to auscultation Cardiovascular: Rate/Rhythm: regular rhythm and + tachycardic Heart Sounds: no murmur Gastrointestinal (Abdomen): Percussion/Palpation: + abdomen tender (right upper quadrant pain on deep palpation) and abdomen soft; no guarding and abdomen not rigid Skin: no rashes, warm and dry Psychiatric: A+Ox3, euthymic affect Results & Data Results & Data Vital Signs (Past 12 Hours) Vital Signs Temp Pulse Pulse Resp BP BP Pulse Ox 11/02/24 19:00 106 H 20 136/81 98 11/02/24 18:26 102 H 20 136/81 92 11/02/24 15:55 97 H 20 97 11/02/24 15:44 36.8 C 98 H 17 143/83 H 98 O2 Del Method 11/02/24 19:00 Room Air 11/02/24 18:26 Room Air 11/02/24 15:55 Room Air 11/02/24 15:44 Room Air Laboratory Results Abnormal lab results 11/02/24 11/02/24 Range/Units 15:50 15:55 WBC 15.25 H (4.8-10.8) K/ul MPV 9.3 L (9.4-12.4) fL Neut # (Auto) 11.83 H (1.40-6.50) K/uL Brewster # (Auto) 1.15 H (0.11-0.59) K/uL BUN/Creatinine Ratio 26.4 H (10-20) Glucose 103 H (70-99(Fasting)) mg/dl Urine Ketones Trace H (Negative) Ur Leukocyte Esterase 2+ H (Negative) Urine WBC (Auto) 11-20 H (0-5) /hpf U Epithel Cells (Auto) 6-10 H (0-2) /hpf Diagnostic Findings CXR Clinical History: Chest pain Technique: A frontal view of the chest was obtained Comparison is made to the prior examination dated 06/17/2023 Findings: There are no confluent pulmonary infiltrates. The heart size is within normal limits. No pleural effusion or pneumothorax is seen. There is no definite pulmonary nodule. No fracture is noted. No foreign body is seen Impression: No active disease CT ABDOMEN and PELVIS with INTRAVENOUS CONTRAST HISTORY: Abdominal pain TECHNIQUE: CT abdomen and pelvis with contrast. IV CONTRAST: 100 mL of OMNIPAQUE 300 ENTERIC CONTRAST: Not Given COMPARISON: CT abdomen pelvis April 15, 2023 FINDINGS: LOWER CHEST: Unremarkable LIVER: No focal lesion identified. Hepatic steatosis and hepatomegaly. GALLBLADDER/BILIARY: Moderately distended gallbladder containing numerous gallstones. Pericholecystic inflammation with mild gallbladder wall thickening and trace pericholecystic fluid. SPLEEN: Unremarkable. PANCREAS: Unremarkable. ADRENALS: Unremarkable. KIDNEYS: Small cortical cysts. No stones or hydronephrosis identified. PERITONEUM/RETROPERITONEUM. No lymphadenopathy by size criteria. No aortic aneurysm. GASTROINTESTINAL: No obstruction. Normal appendix. Colonic diverticulosis without evidence of diverticulitis. REPRODUCTIVE: Redemonstration of findings suggesting pelvic floor relaxation. Status post hysterectomy BONES: No acute findings. IMPRESSION: Findings highly suspicious for acute cholecystitis. Further assessment with abdominal ultrasound and/or HIDA scan may be obtained if clinically indicated. Medications Administered ER Medications Given: Normal saline 1L bolus Maalox 30ml PO Metoclopramide 10mg IV Morphine 4mg IV Zosyn 4.5g IV Morphine 4mg IV ECG Rate (beats per minute): 93 Rhythm: normal sinus Findings: no acute ischemic change Comparison ECG Date: from (July 28, 2019) Change: no significant change PG Care Time/CCT Total # of Minutes Spent Total Time Spent with Patient: Total time spent is greater than 50% in coordination of care (as documented) at patient's floor/unit and/or counseling patient: Coding Level of Care Code 05805 IN/OBS CONSULT LVL 3,45M Diagnoses Acute cholecystitis K81.0 Sepsis A41.9 Gastroesophageal reflux disease, unspecified whether esophagitis present K21.9 Esophagitis presence: esophagitis presence not specified Type 2 diabetes mellitus without complication, unspecified whether supervisor labor gang insulin use E11.9 Diabetes mellitus [facility] insulin use: unspecified supervisor labor [employer] insulin use status Diabetes mellitus complication status: without complication Heartburn R12 (3) GERD (gastroesophageal reflux disease) Esophagitis presence: esophagitis presence not specified Qualified Code(s): K21.9 - Gastro-esophageal reflux disease without esophagitis (4) Diabetes mellitus, type 2 Diabetes mellitus supervisor labor [employer] insulin use: unspecified [facility] insulin use status Diabetes mellitus complication status: without complication Qualified Code(s): E11.9 - Type 2 diabetes mellitus without complications
[2024-11-02] MEDS: ONDANSETRON INJ 2 MG/ML 2 ML VIAL IV PRN (20:19)
[2024-11-02] MEDS: SODIUM CHLORIDE 0.9% 1,000 ML IV SCH (20:22)
[2024-11-02 20:53] LABS: INR 0.9 (0.9-1.1); Partial Thromboplastin Time 29 Seconds (21-31); Prothrombin Time 10.0 Seconds (9.0-12.0)
[2024-11-02] MEDS ORDERED: CARBOHYDRATES FOR HYPOGLYCEMIA PO PRN (21:55)
[2024-11-02] MEDS ORDERED: GLUCOSE 40% GEL 15 GM TUBE PO PRN (21:55)
[2024-11-02] MEDS ORDERED: DEXTROSE 50% 50 ML SYRINGE IV PRN (21:55)
[2024-11-02] MEDS ORDERED: GLUCOSE 10 TAB/TUBE PO PRN (21:55)
[2024-11-02] MEDS ORDERED: GLUCAGON FOR INJ 1 MG VIAL SQ PRN (21:55)
[2024-11-02] MEDS: PIPERACILLIN/TAZOBACTAM 4.5 GM/100 ML BAG IV SCH (23:37)
[2024-11-02] MEDS: MoRPHine SULFATE 4 MG/ML 1 ML CARP\\VIAL IV PRN (23:42)
[2024-11-03] MEDS: INSULIN ASPART PER UNIT CHARGE SC SCH (00:01)
[2024-11-03 06:15] LABS: Hematocrit (blood only) 36.7 % (37.0-47.0); Hemoglobin 12.8 g/dl (12.0-16.0); Immature Granulocytes # (auto) 0.03 K/uL (0.01-0.20); Immature Granulocytes % (auto) 0.3 %; Mean Corpuscular Hemoglobin 28.7 pg (25.0-34.0); Mean Corpuscular Volume 82.3 fL (80.0-100.0); Platelet Count 308 K/uL (130-400); RDW Standard Deviation 38.5 fL (36.4-46.3); Red Blood Count 4.46 M/uL (4.20-5.40); White Blood Count 10.16 K/ul (4.8-10.8)
[2024-11-03 06:33] LABS: Alanine Aminotransferase 204.0 U/L (7-52); Albumin Globulin Ratio 1.2 (0.9-2); Alkaline Phosphatase 112.0 U/L (34-104); Anion Gap 5.0 (3-11); Bilirubin,Total 1.0 mg/dl (0.2-1.0); Blood Urea Nitrogen 12.0 mg/dl (6-23); Calcium 8.9 mg/dl (8.6-10.3); Carbon Dioxide 29.0 mmol/L (21-32); Chloride 104.0 mmol/L (98-107); Creatinine Clr Calc Pharmacy 90.5 ml/min; Globulin 2.9 gm/dl (2.5-4.0); Glucose 104.0 mg/dl (70-99(Fasting)); Lipase 27.0 U/L (11-82); Potassium 3.5 mmol/L (3.5-5.1); Sodium 138.0 mmol/L (136-145); Total Protein 6.4 gm/dl (6.0-8.3)
[2024-11-03 07:14] LABS: Hemoglobin A1C 5.5 % (4.5-5.6)
[2024-11-03] MEDS: METOPROLOL SUCC 50MG EXT REL TAB PO SCH (08:12)
[2024-11-03] MEDS: METOCLOPRAMIDE HCL INJ 5 MG/ML 2 ML VIAL IV PRN (09:13)
[2024-11-03] MEDS: MAGNESIUM OXIDE 400 MG TAB PO SCH (10:52)
[2024-11-03] MEDS ORDERED: ONDANSETRON INJ 2 MG/ML 2 ML VIAL ONE (11:05)
[2024-11-03] MEDS ORDERED: ROCURONIUM BROMIDE 10 MG/ML 5 ML VIAL IV ONE ×2 (11:05→13:15)
[2024-11-03] MEDS ORDERED: PROPOFOL IV EMULSION 10 MG/ML 20 ML VIAL IV ONE (11:05)
[2024-11-03] MEDS ORDERED: DEXAMETHASONE SOD INJ 4 MG/ML VIAL ONE (11:05)
[2024-11-03] MEDS ORDERED: MIDAZOLAM HCL 1 MG/ML 2ML VIAL ONE (11:06)
[2024-11-03] MEDS ORDERED: SUGAMMADEX SODIUM 200 MG/2 ML VIAL IV ONE ×2 (11:06→13:15)
--- NOTE | 2024-11-03 11:48 | Electrocardiogram Report ---
Test Reason : Blood Pressure : */* mmHG Vent. Rate : 93 BPM Atrial Rate : 93 BPM P-R Int : 158 ms QRS Dur : 98 ms QT Int : 340 ms P-R-T Axes : 55 -33 12 degrees QTcB Int : 422 ms Normal sinus rhythm Left axis deviation Poor R wave progression, consider anterior [place] vs. lead placement vs. LVH Abnormal ECG When compared with ECG of 28-Jul-2019 17:32, No significant change was found Confirmed by Bry Poole ([id number]) on 11/03/2024 11:46:35 AM Referred By: REFERRED SELF Confirmed By: Bry Poole
[2024-11-03] MEDS ORDERED: ATROPINE SULFATE 0.1 MG/ML 10ML SYR IV PRN (11:49)
[2024-11-03] MEDS ORDERED: PROMETHAZINE HCL 6.25 MG in SODIUM CHLORIDE 0.9% 50 ML IV PRN (11:49)
[2024-11-03] MEDS ORDERED: ONDANSETRON INJ 2 MG/ML 2 ML VIAL IV PRN (11:49)
[2024-11-03] MEDS ORDERED: MoRPHine SULFATE 10 MG/ML CARP/VIAL IV PRN (11:49)
[2024-11-03] MEDS ORDERED: HYDROmorphone INJ 2 MG/ML SYR/VIAL IV PRN (11:49)
--- NOTE | 2024-11-03 11:49 | Anesthesiology Consultation ---
Date of Service November 03, 2024 Assessment & Plan Chart Review Chart Review: Acceptable Risk for Surgery Consults Requested none History Surgery Operation Date: 11/03/24 10:30 Proposed Procedures p Laparoscopic Cholecystectomy with Cholangiogram - Mukund Ortiz DO Height/Weight Height: 5 ft 6 in Weight: 83 kg Allergies Allergy/AdvReac Type Severity Reaction Status Date / Time naproxen AdvReac Intermediate Increases Verified 11/02/24 17:21 heart rate Medications Home Medications Medication Instructions Recorded Confirmed Last Taken blood sugar diagnostic (Blood #100 ea 05/31/20 05/16/24 Unknown Glucose Test strips) blood-glucose meter (Blood Glucose #1 ea 05/31/20 05/16/24 Unknown Monitoring kit) blood sugar diagnostic (OneTouch #100 ea 02/16/23 05/16/24 Unknown Verio test strips) blood-glucose meter (OneTouch #1 ea 02/16/23 05/16/24 Unknown Verio Flex Start kit) metoprolol succinate 100 mg 100 mg PO QAM 03/25/23 11/02/24 11/02/24 tablet,extended release 24 hr rosuvastatin 10 mg tablet 10 mg PO HS 03/25/23 11/02/24 11/01/24 ibuprofen 200 mg capsule (Motrin 400 mg PO HS Pain 06/21/23 11/02/24 11/01/24 IB) acyclovir 5 % topical ointment 1 applic topical 6XD PRN Cold 05/04/24 11/02/24 Unknown (Zovirax) Sores #30 grams metformin 500 mg tablet 1,000 mg (2 x 500 mg) PO BID #360 05/29/24 11/02/24 11/02/24 08:00 tabs pantoprazole 40 mg tablet,delayed 40 mg PO BID #180 tabs 09/26/24 11/02/24 11/02/24 08:00 release cholecalciferol (vitamin D3) 25 0 mcg PO DAILY 11/02/24 11/02/24 11/02/24 mcg (1,000 unit) capsule (Vitamin D3) docusate sodium 100 mg capsule 100 mg PO DAILY 11/02/24 11/02/24 11/02/24 (Colace) lysine 500 mg tablet 500 mg PO DAILY 11/02/24 11/02/24 11/02/24 magnesium 250 mg tablet 250 mg PO DAILY 11/02/24 11/02/24 11/02/24 tirzepatide 12.5 mg/0.5 mL 12.5 mg subcut WK 11/02/24 11/02/24 10/30/24 subcutaneous pen injector valsartan 160 1 tab PO DAILY 11/02/24 11/02/24 11/02/24 mg-hydrochlorothiazide 12.5 mg tablet Active Medications Generic Name Dose Route Start Last Admin Trade Name Freesme PRN Reason Stop Dose Admin Sodium Chloride 1,000 mls @ 100 mls/hr 11/02/24 19:45 11/03/24 05:49 Nss IV 11/05/24 19:44 100 mls/hr .Q10H NIKOLAI Administration Piperacillin Sod/Tazobactam Sod 4.5 gm in 100 mls @ 25 mls/hr 11/03/24 00:00 11/03/24 08:07 Zosyn IV 11/13/24 00:00 25 mls/hr Q8H NIKOLAI Administration Protocol Insulin Aspart 0 units 11/03/24 00:00 11/03/24 05:55 Insulin Aspart Per Unit Charge SC 12/03/24 00:00 Not Given Q6 NIKOLAI Magnesium Oxide 400 mg 11/03/24 09:00 11/03/24 10:52 Magnesium Oxide 400 Mg Tab PO 12/03/24 08:59 Not Given DAILY NIKOLAI Metoclopramide HCl 10 mg 11/03/24 08:10 11/03/24 09:13 Metoclopramide Hcl Inj 5 Mg/Ml 2 Ml Vial IV 12/03/24 08:09 10 mg Q6H PRN Administration Nausea Metoprolol Succinate 100 mg 11/03/24 09:00 11/03/24 08:12 Metoprolol Succ 50mg Ext Rel Tab PO 12/03/24 08:59 100 mg QAM NIKOLAI Administration Morphine Sulfate 3 mg 11/02/24 19:34 11/03/24 05:52 Morphine Sulfate 4 Mg/Ml 1 Ml Carp\\Vial IV 11/16/24 19:33 3 mg Q3H PRN Administration Severe Pain (Scale 7, 8, 9,10) Ondansetron HCl 4 mg 11/02/24 19:34 11/03/24 05:49 Ondansetron Inj 2 Mg/Ml 2 Ml Vial IV 12/02/24 19:33 4 mg Q6H PRN Administration Nausea And Vomiting Pantoprazole Sodium 40 mg 11/02/24 21:55 11/03/24 10:52 Pantoprazole 40 Mg Tab PO 12/02/24 21:54 Not Given BID NIKOLAI NPO Date Last Intake of Fluids: 11/03/24 Time Last Intake of Fluids: 08:12 Date Last Intake of Solids: 11/02/24 Time Last Intake of Solids: 09:00 Past Medical History Medical History Tachycardia Dr. Muñoz Urinary incontinence Hiatal hernia Unsure if official diagnosis, not noted on available [facility] chest imaging Obesity Diverticular disease History of COVID-19 Total x3 03/2020- developed diabetes shortly after Most recent 12/2022 Sleep apnea Tries to wear but "pulls off" at night Cholelithiasis Hx stone, no surgical intervention Past Family History Family History Father , Jan 2023 Coronary heart disease Dyslipidemia Prostate cancer Mother Hypertension Son Family history of reaction to anesthesia "turned bright red when having tonsils out" Other No pertinent family history in first degree relatives Denies family history of Ovarian cancer Myocardial infarction Breast cancer Colorectal cancer Past Surgical History Surgical History S/P nasal septoplasty S/P robot-assisted surgical procedure (06/17/23) robotic assisted sacrocolpopexy Family history of reaction to anesthesia Son- turned "bright red" in post-op period after tonsillectomy. No definitive etiology found. No similar issues/reaction for patient personally. History of sinus surgery History of endoscopy History of colonoscopy History of colonoscopy with polypectomy Status post endometrial ablation History of bladder suspension procedure Status post correction of deviated nasal septum History of wisdom tooth extraction History of blepharoplasty B/L H/O removal of thyroglossal duct cyst S/P hysterectomy S/P bilateral breast reduction S/P left knee arthroscopy S/P ORIF (open reduction internal fixation) fracture Left ankle Social History Smoking Status: Former smoker tobacco type: cigarettes Smoking cigarettes per day: Ages [age] Do You Dip or Chew Tobacco: No Hx Alcohol Use: No alcohol intake frequency: holidays/special occasions only (very rarely) Hx Substance Use: No substance use type: does not use Physical Exam Vital Signs Last Vital Signs Temp 36.9 C 11/03/24 11:30 Pulse 95 H 11/03/24 11:30 Resp 16 11/03/24 11:30 BP 122/69 11/03/24 11:30 Pulse Ox 94 11/03/24 11:30 O2 Del Method Room Air 11/03/24 11:30 Testing Laboratory Results 11/03/24 05:56 11/03/24 05:56 PT 10.0 Seconds (9.0-12.0) 11/02/24 15:50 INR 0.9 (0.9-1.1) 11/02/24 15:50 APTT 29 Seconds (21-31) 11/02/24 15:50 Hemoglobin A1c 5.5 % (4.5-5.6) 11/03/24 05:56 Urine Color Yellow 11/02/24 15:50 Urine Appearance Clear (Clear) 11/02/24 15:50 Urine pH 5.5 (4.5-7.5) 11/02/24 15:50 Ur Specific Romeo 1.028 (1.000-1.030) 11/02/24 15:50 Urine Protein Negative (Negative) 11/02/24 15:50 Urine Glucose (UA) Negative (Negative) 11/02/24 15:50 Urine Ketones Trace (Negative) H 11/02/24 15:50 Urine Nitrite Negative (Negative) 11/02/24 15:50 Ur Leukocyte Esterase 2+ (Negative) H 11/02/24 15:50 Urine WBC (Auto) 11-20 /hpf (0-5) H 11/02/24 15:50 Urine RBC (Auto) 0-2 /hpf (0-2) 11/02/24 15:50 U Hyaline Cast (Auto) 0-2 /lpf (0-2) 11/02/24 15:50 U Epithel Cells (Auto) 6-10 /hpf (0-2) H 11/02/24 15:50 Urine Bacteria (Auto) None Seen (None Seen) 11/02/24 15:50 11/03/24 11/03/24 11:24 05:54 POC Glucose 99 96
--- NOTE | 2024-11-03 11:51 | Surgery Progress Note ---
Date of Service November 03, 2024 Assessment & Plan (1) Acute cholecystitis: (2) Transaminitis: Plan: Liver function tests were elevated on this am labs. The patient will be take to the OR for laparoscopic cholecystectomy with IOC. The details of the procedure have been explained to her including the risks and benefits. She expressed understanding of this explanation and all of her questions were answered. Consent was obtained. If IOC is (+) she may require transfer to a location where GI has ERCP capability if the GI here does not perform this procedure. Admission and Anticipated Discharge Date Admission Date: November 02, 2024 Subjective I have seen and examined this patient this am. She continues with nausea and has RUQ pain. Physical Exam Constitutional: healthy appearing; not ill appearing, not in distress and not diaphoretic Respiratory: normal respiratory effort; no respiratory distress, no labored breathing and does not use accessory muscles Cardiovascular: Rate/Rhythm: regular rate Gastrointestinal (Abdomen): Inspection/Auscultation: abdomen normal to inspection; abdomen not distended Percussion/Palpation: + abdomen tender (RUQ ) and abdomen soft Results & Data Vital Signs (Past 12 Hours) Vital Signs Temp Pulse Resp BP Pulse Ox O2 Del Method 11/03/24 07:42 37.3 C 90 17 112/72 97 Room Air PG Care Time/CCT Total # of Minutes Spent Total Time Spent with Patient: Total time spent is greater than 50% in coordination of care (as documented) at patient's floor/unit and/or counseling patient: Coding Level of Care Code 47244 SUB INP/OBS CARE 05/13MIN Diagnoses Acute cholecystitis K81.0 Transaminitis R74.01
[2024-11-03] MEDS: LACTATED RINGER'S 1,000 ML IV SCH (11:52)
[2024-11-03] MEDS ORDERED: KETOROLAC 30 MG/ML VIAL ONE (12:05)
[2024-11-03] MEDS: BUPIVACAINE/EPINEPHRINE 0.5% MPF 1:200,000 30 ML VIAL ONE (13:01)
[2024-11-03] MEDS: IOVERSOL 50ml INSTIL ONE (13:54)
--- NOTE | 2024-11-03 15:40 | Operative Report ---
PG Post Operative Report Pre & Post Diagnosis Operation Date: 11/03/24 10:30 Pre-Op Diagnosis: (1) Acute cholecystitis (2) Transaminitis Post-Op Diagnosis: (1) Acute cholecystitis (2) Transaminitis I identified the patient and participated in the time-out.: Yes Procedure Operation Date: 11/03/24 10:30 Actual Procedures p Laparoscopic Cholecystectomy with Cholangiogram(Not Applicable) - Mukund Ortiz DO Surgeon Mukund Ortiz DO Mission Coordinator SULAIMAN Sepulveda Estimated Blood Loss 30 Findings See Below Acute purulent cholecystitis with black stones Specimens Gallbadder Drains None Anesthesia Type General Complications No immediate complications Indications Acute cholecystitis by imaging. LFTs elevated this a.m. Description of Procedure The patient was brought back to the operating room placed on the operating room table in supine position. She was connected to cardiac and oxygen monitoring, supplemental O2 was provided and SCDs were applied to bilateral lower extremities. The patient was administered general anesthesia and a secure airway was established. The abdomen was prepped and draped in typical sterile fashion a timeout was conducted. Local anesthetic was used to anesthetize the skin and subcutaneous tissues at all incisions and all incisions were made with an 11 blade. Intra-abdominal access was gained at the supraumbilical fold using a Veress needle and this was confirmed with a saline drop test. CO2 insufflation was initiated to a wall pressure of 15 mmHg. Once this pressure was reached, 5 mm trocar was inserted using direct visualization with a 5 mm laparoscope with an Optiview port. Under direct visualization an additional 11 mm trocar was inserted at the epigastric region and 2 additional 5 mm trocars along the right subcostal margin. The OR table was positioned in reverse Trendelenburg and left side down. The gallbladder was noted the right upper quadrant swollen and covered with omentum. Adhesions to the omentum were lysed this was a thick dense adhesions very obvious for significant acute cholecystitis. The gallbladder was very firm hard distended and required decompression. The gallbladder was decompressed with a needle. Purulent fluid was encountered and suctioned. The gallbladder developed a thick rind around it which was tedious to dissect to get to the infundibulum. The gallbladder tore in 2 locations due to the fibrinous tissue dark black large stones were expelled. After some time, the cystic triangle was exposed. The artery was ligated using two 5 mm clips proximally and 1 distally. The artery was then transected. The cystic duct was readily identified and dissected free so that an incision could be made for the cholangiogram catheter. The cholangiogram was performed noting contrast into the small intestine as well as the biliary radicles. Did not appear to contain any stones in the common bile duct. Cholangiocatheter was removed. The cystic duct was then ligated with two 5 mm clips proximally and 1 distally just above the area that had been open for the cholangiogram. The cystic duct was transected. The gallbladder was removed from the liver bed using alternating cautery and blunt dissection. Bleeding along the way was controlled using cautery. The gallbladder was placed in an Endo Catch bag. Spilled stones were retrieved and placed in the Endo Catch bag as well. The OR table was returned to the neutral position. The right upper quadrant was copiously irrigated multiple times and suctioned clear free of bloody drainage bile or purulent fluid. The area was cleared there was no bleeding from the liver bed. The gallbladder was removed from the epigastric incision which had to be enlarged in order to fill allow for the removal of the gallbladder because of its size and due to the large stones. CO2 insufflation was discontinued and excess pneumoperitoneum was evacuated as instruments were also removed. The fascia and muscle at the epigastric incision was closed using 0 Vicryl suture. Additional local anesthetic was used at each incision site. The skin incisions were all closed with 4-0 Vicryl suture. The abdomen was wiped clean with a saline soaked lap pad and dried. The skin incisions were further sealed with Dermabond. The patient tolerated the procedure well. She was awakened from anesthesia, the secure airway was removed and she was transferred to recovery in stable condition. I attest to the content of the Intraoperative Record and any orders documented therein. Any exceptions are noted below.
[2024-11-03] MEDS: ACETAMINOPHEN 1,000 MG/100 ML VIAL IV PRN (15:42)
--- NOTE | 2024-11-03 15:45 | Fluoroscopy Report ---
[place] cholangiogram OR CLINICAL HISTORY: ADD ON CHOLANGIOGRAM COMPARISON STUDY: None Fluoroscopy time: 6 seconds. FINDINGS: Contrast flows normally through the common bile duct to the small bowel. No common ductal d ilatation seen. No common bile duct stone seen. IMPRESSION: Fluoroscopy for cholangiogram. ACT 112: Negative or not required by law. Electronically signed by: Marcos Simpson M.D. 11/03/2024 3:44 PM
--- NOTE | 2024-11-03 16:39 | Anesthesiology Progress Note ---
Date of Service November 03, 2024 Anesthesia Post Procedure Vital Signs Vital Signs: Temp Pulse Pulse Resp BP BP Pulse Ox 11/03/24 16:35 87 13 108/65 91 11/03/24 16:25 99 H 19 102/68 91 11/03/24 16:15 88 11 L 120/60 90 11/03/24 16:05 90 14 124/66 91 11/03/24 15:55 87 16 130/71 93 11/03/24 15:45 90 17 134/68 91 11/03/24 15:35 90 14 136/75 91 11/03/24 15:25 90 14 138/76 90 11/03/24 15:17 36.8 C 91 H 26 H 127/77 94 11/03/24 11:30 36.9 C 95 H 16 122/69 94 11/03/24 08:30 11/03/24 07:42 37.3 C 90 17 112/72 97 11/02/24 21:10 36.9 C 98 H 16 127/75 97 11/02/24 20:59 36.8 C 97 H 20 114/66 96 11/02/24 20:00 100 H 20 111/67 93 11/02/24 19:00 106 H 20 136/81 98 11/02/24 18:26 102 H 20 136/81 92 O2 Del Method O2 Flow Rate 11/03/24 16:35 Nasal Cannula 3 11/03/24 16:25 Nasal Cannula 3 11/03/24 16:15 Nasal Cannula 3 11/03/24 16:05 Nasal Cannula 3 11/03/24 15:55 Oxymask 8 11/03/24 15:45 Oxymask 10 11/03/24 15:35 Oxymask 13 11/03/24 15:25 Oxymask 13 11/03/24 15:17 Oxymask 13 11/03/24 11:30 Room Air 11/03/24 08:30 Room Air 11/03/24 07:42 Room Air 11/02/24 21:10 Room Air 11/02/24 20:59 Room Air 11/02/24 20:00 Room Air 11/02/24 19:00 Room Air 11/02/24 18:26 Room Air Pain Intensity Chest: Pain Intensity: 4 Transfer of Care Handoff Completed per policy Notes Mental Status: alert / awake / arousable and participated in evaluation Patient Amnestic to Procedure: Yes Nausea / Vomiting: adequately controlled Pain: adequately controlled Airway Patency, RR, SpO2: stable & adequate BP & HR: stable & adequate Hydration State: stable & adequate Anesthetic Complications: no major complications apparent and Pt Satisfied with anesthetic care
--- NOTE | 2024-11-03 17:47 | Hospitalist Progress Note ---
Date of Service November 03, 2024 Assessment & Plan (1) Acute cholecystitis: (2) Sepsis: (3) GERD (gastroesophageal reflux disease): (4) Diabetes mellitus, type 2: Plan 64 year old female presents to the ER with right upper quadrant pain #Sepsis / acute cholecystics SIRS criteria met with tachycardia and WBC. Source = acute cholecystitis. Blood cultures pending Continue antibiotics per surgery recommendations s/p lap ronda with Dr. Alhaji Oliva 11/03 with negative IOP #T2DM HbA1C 5.5 [06/08/24] Novolog for correction only Hold metformin BSG acceptable #GERD Continue pantoprazole 40mg PO BID #Hypertension Continue metoprolol pre-operatively will continue to hold valsartan/HCTZ - until AM labs result #Hyperlipidemia Continue rosuvastatin VTE Prophylaxis - deferred to primary surgical team Thank you for allowing us to participate in the care of this patient, please reach out with any questions or concerns. Hospital Medicine will continue. Admission and Anticipated Discharge Date Admission Date: November 02, 2024 Supervising Physician Co-Signing Physician Notes PA Supervision Note: I did not personally see or examine the patient today, but I verified all cruz points of SULAIMAN Bonilla's assessment and plan with the following exceptions/additions: None Subjective seen post operatively feels like she has been hit with a truck with pain, nausea and just feels spacey Review of Systems Review of Systems: All systems reviewed & are unremarkable except as noted in Subjective Physical Exam Physical Exam: General: NAD, VS as above Resp: normal respiratory effort, lungs clear to auscultation CV: RRR, no murmur, Abd: normal bowel sounds, soft, incision c/d/i Extremities: Moves all extremities, no edema Neuro: A&O x3, Results & Data Results & Data Vital Signs (Past 12 Hours) Vital Signs Temp Pulse Pulse Resp BP Pulse Ox O2 Del Method 11/03/24 17:10 98.1 F 91 H 16 110/69 94 Nasal Cannula 11/03/24 16:45 87 14 113/69 92 Nasal Cannula 11/03/24 16:35 87 13 108/65 91 Nasal Cannula 11/03/24 16:25 99 H 19 102/68 91 Nasal Cannula 11/03/24 16:15 88 11 L 120/60 90 Nasal Cannula 11/03/24 16:05 90 14 124/66 91 Nasal Cannula 11/03/24 15:55 87 16 130/71 93 Oxymask 11/03/24 15:45 90 17 134/68 91 Oxymask 11/03/24 15:35 90 14 136/75 91 Oxymask 11/03/24 15:25 90 14 138/76 90 Oxymask 11/03/24 15:17 98.2 F 91 H 26 H 127/77 94 Oxymask 11/03/24 11:30 98.4 F 95 H 16 122/69 94 Room Air 11/03/24 08:30 Room Air 11/03/24 07:42 99.1 F 90 17 112/72 97 Room Air O2 Flow Rate 11/03/24 17:10 2 11/03/24 16:45 3 11/03/24 16:35 3 11/03/24 16:25 3 11/03/24 16:15 3 11/03/24 16:05 3 11/03/24 15:55 8 11/03/24 15:45 10 11/03/24 15:35 13 11/03/24 15:25 13 11/03/24 15:17 13 11/03/24 11:30 11/03/24 08:30 11/03/24 07:42 Laboratory Results cbc and chemsitry reviewed PG Care Time/CCT Total # of Minutes Spent Total Time Spent with Patient: Total time spent is greater than 50% in coordination of care (as documented) at patient's floor/unit and/or counseling patient: Coding Level of Care Code 51648 SUB INP/OBS CARE MIN Diagnoses Acute cholecystitis K81.0 Sepsis A41.9 Gastroesophageal reflux disease, unspecified whether esophagitis present K21.9 Esophagitis presence: esophagitis presence not specified Type 2 diabetes mellitus without complication, unspecified whether ad terminal makeup operator insulin use E11.9 Diabetes mellitus complication status: without complication Diabetes mellitus longterm insulin use: unspecified ad terminal makeup operator insulin use status (3) GERD (gastroesophageal reflux disease) Esophagitis presence: esophagitis presence not specified Qualified Code(s): K21.9 - Gastro-esophageal reflux disease without esophagitis (4) Diabetes mellitus, type 2 Diabetes mellitus complication status: without complication Diabetes mellitus longterm insulin use: unspecified longterm insulin use status Qualified Code(s): E11.9 - Type 2 diabetes mellitus without complications
[2024-11-03] MEDS: MoRPHine SULFATE 2 MG/ML CARP IV PRN (18:34)
[2024-11-03] MEDS: ROSUVASTATIN CALCIUM 10 MG TAB PO SCH (21:26)
[2024-11-04] MEDS ORDERED: Nursing to Pharmacy Communication SCH (05:30)
[2024-11-04 07:31] LABS: Hematocrit (blood only) 35.9 % (37.0-47.0); Hemoglobin 12.2 g/dl (12.0-16.0); Immature Granulocytes # (auto) 0.08 K/uL (0.01-0.20); Immature Granulocytes % (auto) 0.5 %; Mean Corpuscular Hemoglobin 28.3 pg (25.0-34.0); Mean Corpuscular Volume 83.3 fL (80.0-100.0); Platelet Count 306 K/uL (130-400); RDW Standard Deviation 38.7 fL (36.4-46.3); Red Blood Count 4.31 M/uL (4.20-5.40); White Blood Count 16.22 K/ul (4.8-10.8)
[2024-11-04 07:55] LABS: Alanine Aminotransferase 136.0 U/L (7-52); Albumin Globulin Ratio 1.1 (0.9-2); Alkaline Phosphatase 83.0 U/L (34-104); Anion Gap 6.0 (3-11); Bilirubin,Total 0.7 mg/dl (0.2-1.0); Blood Urea Nitrogen 10.0 mg/dl (6-23); Calcium 9.0 mg/dl (8.6-10.3); Carbon Dioxide 30.0 mmol/L (21-32); Chloride 103.0 mmol/L (98-107); Creatinine Clr Calc Pharmacy 89.2 ml/min; Globulin 2.9 gm/dl (2.5-4.0); Glucose 123.0 mg/dl (70-99(Fasting)); Potassium 3.5 mmol/L (3.5-5.1); Sodium 139.0 mmol/L (136-145); Total Protein 6.2 gm/dl (6.0-8.3)
[2024-11-04] MEDS: INSULIN ASPART PER UNIT CHARGE SC SCH (08:09)
--- NOTE | 2024-11-04 09:50 | Hospitalist Progress Note ---
Date of Service November 04, 2024 Assessment & Plan (1) Acute cholecystitis: (2) Sepsis: (3) GERD (gastroesophageal reflux disease): (4) Diabetes mellitus, type 2: Plan 64 year old female presents to the ER with right upper quadrant pain #Sepsis / acute cholecystics SIRS criteria met with tachycardia and WBC. Source = acute cholecystitis. Blood cultures no growth 24 hours s/p lap ronda with Dr. Alhaji Oliva 11/03 with negative IOP Rec continued abx at discharge #T2DM - resume metformin at discharge #GERD - Continue pantoprazole 40mg PO BID #Hypertension Continue metoprolol Discussed with patient to hold valsartan/HCTZ until PO intake returns to normal #Hyperlipidemia Continue rosuvastatin Thank you for allowing us to participate in the care of this patient, please reach out with any questions or concerns. Hospital Medicine will sign off. Admission and Anticipated Discharge Date Admission Date: November 02, 2024 Supervising Physician Co-Signing Physician Notes PA Supervision Note: I did not personally see or examine the patient today, but I verified all cruz points of SULAIMAN Bonilla's assessment and plan with the following exceptions/additions: None Subjective patient seen lying in bed, reports feeling alot better pain is well controlled able to tolerate PO unsure if she has passed gas Review of Systems Review of Systems: All systems reviewed & are unremarkable except as noted in Subjective Physical Exam Physical Exam: General: NAD, VS as above Resp: normal respiratory effort, lungs clear to auscultation CV: RRR, no murmur, Abd: normal bowel sounds, soft, incision c/d/i Extremities: Moves all extremities, no edema Neuro: A&O x3, Results & Data Results & Data Vital Signs (Past 12 Hours) Vital Signs Temp Pulse Resp BP Pulse Ox O2 Del Method O2 Flow Rate 11/04/24 08:33 102/63 11/04/24 08:06 91 Room Air 11/04/24 07:18 98.1 F 92 H 16 98/61 L 93 Nasal Cannula 4.5 11/04/24 04:03 98.2 F 95 H 16 110/67 96 Nasal Cannula 2 11/04/24 04:00 99.1 F 72 18 120/68 93 Nasal Cannula 3 11/04/24 00:00 99.5 F 99 H 18 117/72 93 Room Air Laboratory Results cbc and chemistry reviewed PG Care Time/CCT Total # of Minutes Spent Total Time Spent with Patient: Total time spent is greater than 50% in coordination of care (as documented) at patient's floor/unit and/or counseling patient: Coding Level of Care Code 02546 SUB INP/OBS CARE Diagnoses Acute cholecystitis K81.0 Sepsis A41.9 Gastroesophageal reflux disease, unspecified whether esophagitis present K21.9 Esophagitis presence: esophagitis presence not specified Type 2 diabetes mellitus without complication, unspecified whether halfway insulin use E11.9 Diabetes mellitus complication status: without complication Diabetes mellitus halfway insulin use: unspecified halfway insulin use status (3) GERD (gastroesophageal reflux disease) Esophagitis presence: esophagitis presence not specified Qualified Code(s): K21.9 - Gastro-esophageal reflux disease without esophagitis (4) Diabetes mellitus, type 2 Diabetes mellitus complication status: without complication Diabetes mellitus halfway insulin use: unspecified terminal clerk insulin use status Qualified Code(s): E11.9 - Type 2 diabetes mellitus without complications
--- NOTE | 2024-11-04 10:12 | Surgery Progress Note ---
Date of Service November 04, 2024 Assessment & Plan (1) Acute cholecystitis: Plan: con't abx check labs in AM ambulate encourage po possible DC in AM Admission and Anticipated Discharge Date Admission Date: November 02, 2024 Subjective pain controlled OK some chills last night WBC up to 16 LFTs trending down Review of Systems Constitutional: + chills; no fever and no anorexia Respiratory: no dyspnea Cardiovascular: no chest pain Gastrointestinal: + abdominal pain; no nausea, no vomiting and no change in bowel habits Musculoskeletal: no back pain Neurologic: no localized weakness Psychiatric: no behavioral changes Physical Exam 2 Constitutional: WD/WN, vitals as above Eyes: no scleral abnormality Respiratory: normal respiratory effort Cardiovascular: Rate/Rhythm: regular rate and regular rhythm Gastrointestinal (Abdomen): Inspection/Auscultation: abdomen normal to inspection and + abdominal surgical incision; abdomen not distended Percussion/Palpation: + abdomen tender and abdomen soft Musculoskeletal: Head/Neck/Chest: normocephalic and head atraumatic Results & Data Vital Signs (Past 12 Hours) Vital Signs Temp Pulse Resp BP Pulse Ox O2 Del Method O2 Flow Rate 11/04/24 08:33 102/63 11/04/24 08:06 91 Room Air 11/04/24 07:18 36.7 C 92 H 16 98/61 L 93 Nasal Cannula 4.5 11/04/24 04:03 36.8 C 95 H 16 110/67 96 Nasal Cannula 2 11/04/24 04:00 37.3 C 72 18 120/68 93 Nasal Cannula 3 11/04/24 00:00 37.5 C 99 H 18 117/72 93 Room Air
[2024-11-04] MEDS: SIMETHICONE 80 MG CHEW PO PRN (16:44)
[2024-11-04] MEDS: ACETAMINOPHEN 500 MG TAB PO PRN (21:07)
--- NOTE | 2024-11-04 23:43 | Communication Note ---
Date of Service: November 04, 2024 Notified by nurse that vital signs abnormal; tachycardic with fever and slight hypotension. Hospital team signed off this am for this patient. Nurse notified surgical team. Surgical team placed for medicine consult again to address this issue. I went to bedside to see pt. Pt states she is overall feeling well. She has RUQ abdominal pain since admission (persistent before and the same after surgery) and referred pain to R shoulder since surgery. Pt states she was up walking around earlier today and felt a bit unsteady but overall did well. Pt has been trying to po as able throughout the day but does note nausea secondary to the opioids. Pt denies chest pain or SOB. She was given tylenol for the fever. Given BP 95/35 with repeat 109/67 and tachycardia low 100s will do 1 L bolus IVF (as 500 ml/hr) + 1 bag running at 80/hr overnight. Echo from 2020 in chart notes normal EF but low grade diastolic dysfunction. No signs of heart failure/fluid overload on exam. She is covered on antibiotics with zosyn. Advised nurse if any new or worsening symptoms to let our team know. Order placed for monitored I&Os also. Resident Activity Tracking Resident Involvement: Resident Care Provided Care Provided: Adult Hospital Medicine
[2024-11-05] MEDS: LACTATED RINGER'S 1,000 ML IV ONE
[2024-11-05] MEDS: LACTATED RINGER'S 1,000 ML IV SCH (03:30)
[2024-11-05 06:57] LABS: Hematocrit (blood only) 32.7 % (37.0-47.0); Hemoglobin 10.7 g/dl (12.0-16.0); Immature Granulocytes # (auto) 0.06 K/uL (0.01-0.20); Immature Granulocytes % (auto) 0.4 %; Mean Corpuscular Hemoglobin 28.2 pg (25.0-34.0); Mean Corpuscular Volume 86.1 fL (80.0-100.0); Platelet Count 292 K/uL (130-400); RDW Standard Deviation 40.6 fL (36.4-46.3); Red Blood Count 3.80 M/uL (4.20-5.40); White Blood Count 14.04 K/ul (4.8-10.8)
[2024-11-05 07:26] LABS: Alanine Aminotransferase 77.0 U/L (7-52); Albumin Globulin Ratio 1.1 (0.9-2); Alkaline Phosphatase 72.0 U/L (34-104); Anion Gap 3.0 (3-11); Bilirubin,Total 0.6 mg/dl (0.2-1.0); Blood Urea Nitrogen 9.0 mg/dl (6-23); Calcium 8.4 mg/dl (8.6-10.3); Carbon Dioxide 30.0 mmol/L (21-32); Chloride 104.0 mmol/L (98-107); Creatinine Clr Calc Pharmacy 97.4 ml/min; Globulin 2.6 gm/dl (2.5-4.0); Glucose 104.0 mg/dl (70-99(Fasting)); Potassium 3.6 mmol/L (3.5-5.1); Sodium 137.0 mmol/L (136-145); Total Protein 5.5 gm/dl (6.0-8.3)
--- NOTE | 2024-11-05 11:38 | Hospitalist Progress Note ---
Date of Service November 05, 2024 Assessment & Plan (1) Acute cholecystitis: (2) Sepsis: (3) GERD (gastroesophageal reflux disease): (4) Diabetes mellitus, type 2: Plan 64 year old female presents to the ER with right upper quadrant pain. Hospitalist consulted initally but had signed off AM 11/04. Overnight 11/04 became septic with fevers, hypotension and tachycardia. #Sepsis / acute cholecystitis SIRS criteria met with tachycardia and WBC. Source = acute cholecystitis. Blood cultures no growth 48 hours s/p lap ronda with Dr. Alhaji Oliva 11/03 with negative IOP Sepsis overnight 11/04 given 1L bolus with maintenance fluids continued with poor p.o. intake - draw repeat blood cultures, switch antibiotics to cefepime and flagyl AM CBC, BMP and CRP (will attempt to add CRP onto today's labs) If clinically worsening would recommend imaging of abdomen to make sure no abscesses forming #T2DM - continue SSI, resume metformin at discharge #GERD - Continue pantoprazole 40mg PO BID #Hypertension Continue metoprolol Discussed with patient to hold valsartan/HCTZ until PO intake returns to normal #Hyperlipidemia Continue rosuvastatin Thank you for allowing us to participate in the care of this patient, please reach out with any questions or concerns. Hospital Medicine will continue to follow. Case discussed with Dr. Weller Admission and Anticipated Discharge Date Admission Date: November 02, 2024 Supervising Physician Co-Signing Physician Notes SULAIMAN Supervision Note: I did not personally see or examine the patient today, but I verified all cruz points of SULAIMAN Bonilla's assessment and plan with the following exceptions/additions: None Subjective patient seen lying in bed, reports feeling pretty miserable. She has no appetite, has not eaten anything today. Passing gas but no bowel movement yet. Does not feel febrile right now. Physical Exam Physical Exam: General: NAD, VS as above, Appears ill Resp: normal respiratory effort, lungs clear to auscultation CV: RRR, no murmur, Abd: normal bowel sounds, soft, incision c/d/i Extremities: Moves all extremities, no edema Neuro: A&O x3, Results & Data Results & Data Vital Signs (Past 12 Hours) Vital Signs Temp Pulse Resp BP Pulse Ox O2 Del Method O2 Flow Rate 11/05/24 08:30 Room Air 07/20/25 07:34 98.2 F 88 16 94/58 L 93 Room Air 11/05/24 03:00 98.4 F 90 16 102/63 91 Nasal Cannula 2 11/04/24 23:39 99.1 F 109 H 18 109/67 93 Nasal Cannula 2 Laboratory Results CBC and chemistry reviewed PG Care Time/CCT Total # of Minutes Spent Total Time Spent with Patient: Total time spent is greater than 50% in coordination of care (as documented) at patient's floor/unit and/or counseling patient: Coding Level of Care Code 49112 SUB INP/OBS CARE 3/50MIN Diagnoses Acute cholecystitis K81.0 Sepsis A41.9 Gastroesophageal reflux disease, unspecified whether esophagitis present K21.9 Esophagitis presence: esophagitis presence not specified Type 2 diabetes mellitus without complication, unspecified whether group home insulin use E11.9 Diabetes mellitus complication status: without complication Diabetes mellitus group home insulin use: unspecified termite renewal inspector insulin use status (3) GERD (gastroesophageal reflux disease) Esophagitis presence: esophagitis presence not specified Qualified Code(s): K21.9 - Gastro-esophageal reflux disease without esophagitis (4) Diabetes mellitus, type 2 Diabetes mellitus complication status: without complication Diabetes mellitus termite renewal inspector insulin use: unspecified group home insulin use status Qualified Code(s): E11.9 - Type 2 diabetes mellitus without complications
[2024-11-05] MEDS: metroNIDAZOLE 500 MG/100 ML BAG IV SCH (12:59)
--- NOTE | 2024-11-05 13:40 | Surgery Progress Note ---
Date of Service November 05, 2024 Assessment & Plan (1) Acute cholecystitis: Plan: appreciate medical evaluation IV abx consider CT scan tomorrow if febrile again per primary team repeat labs in AM Admission and Anticipated Discharge Date Admission Date: November 02, 2024 Subjective feels better thius AM febrile last night appreciate medical evaluation WBC down to 14 Review of Systems Constitutional: + fever and + chills; no anorexia Respiratory: no cough and no dyspnea Cardiovascular: no chest pain Gastrointestinal: no abdominal pain, no nausea and no vomiting Musculoskeletal: no back pain Neurologic: no localized weakness Psychiatric: no behavioral changes Physical Exam Constitutional: WD/WN, vitals as above Neck: trachea midline Respiratory: normal respiratory effort Cardiovascular: Rate/Rhythm: regular rate and regular rhythm Gastrointestinal (Abdomen): Inspection/Auscultation: abdomen normal to inspection and normal bowel sounds; abdomen not distended Percussion/Palpation: + abdomen tender and abdomen soft; no guarding and abdomen not rigid Musculoskeletal: Head/Neck/Chest: normocephalic and head atraumatic Skin: no rashes, warm and dry Results & Data Vital Signs (Past 12 Hours) Vital Signs Temp Pulse Resp BP Pulse Ox O2 Del Method O2 Flow Rate 11/05/24 08:30 Room Air 11/05/24 07:34 36.8 C 88 16 94/58 L 93 Room Air 11/05/24 03:00 36.9 C 90 16 102/63 91 Nasal Cannula 2
[2024-11-05] MEDS: CEFEPIME 2000MG 2,000 MG/20 ML SYR IV SCH (13:51)
[2024-11-05] MEDS: OPTIRAY 320 100ml IV ONE (15:58)
--- NOTE | 2024-11-05 16:55 | CT Scan Report ---
CT ABDOMEN and PELVIS with INTRAVENOUS CONTRAST HISTORY: Abdominal pain TECHNIQUE: CT abdomen and pelvis with contrast. IV CONTRAST: 100 mL of OMNIPAQUE 300 ENTERIC CONTRAST: Not Given COMPARISON: CT abdomen pelvis November 02, 2024 FINDINGS: LOWER CHEST: New small pleural fluid and subjacent atelectasis. Mild superimposed pneumonia difficult exclude LIVER: No focal lesion identified. Hepatic steatosis and hepatomegaly GALLBLADDER/BILIARY: Postoperative changes of recent cholecystectomy with surgical clips in the gallbladder fossa. Within the gallbladder fossa, there is a fluid containing structure measuring 5.5 cm in size (series 300, image 74) along the surgical clips. SPLEEN: Unremarkable. PANCREAS: Unremarkable. ADRENALS: Unremarkable. KIDNEYS: Small cortical cysts. No stones or hydronephrosis identified. PERITONEUM/RETROPERITONEUM. Moderate pneumoperitoneum that is likely postsurgical. No lymphadenopathy by size criteria. No aortic aneurysm. GASTROINTESTINAL: No obstruction. There is a focal inflammation of the colon at the hepatic flexure where there is wall thickening. Normal appendix is identified. Colonic diverticulosis without evidence of diverticulitis. REPRODUCTIVE: Status post hysterectomy. Redemonstration of findings suggesting pelvic floor relaxation BONES: No acute findings. IMPRESSION: Postoperative changes of recent cholecystectomy. Within the gallbladder fossa, there is a fluid containing structure measuring 5.5 cm in size along the surgical clips. Please correlate with surgical notes. A consideration may be partial cholecystectomy with remnant gallbladder. Other considerations would include a biloma or possibly an abscess formation (though unlikely likely given the timing of surgery) in the surgical bed. Moderate pneumoperitoneum that is likely postsurgical. However other causes such as hollow viscus injury are not excluded. New small pleural fluids and subjacent to passive atelectasis. Difficult to exclude superimposed mild pneumonia in the lung bases. Electronically signed by Finesse Ricketts 11-05-2024 4:55 PM
[2024-11-05] MEDS: LACTATED RINGER'S 500 ML IV ONE (17:21)
[2024-11-05 19:41] LABS: Appearance Urine Clear (Clear); Bacteria Urine Automated None Seen (None Seen); Cast Urine Automated 0-2 /lpf (0-2); Epithelial Cell Urine Auto 0-2 /hpf (0-2); Glucose Urine UA Negative (Negative); RBC Urine Automated 0-2 /hpf (0-2); WBC Urine Automated 0-5 /hpf (0-5)
--- NOTE | 2024-11-05 19:50 | XRay Report ---
EXAM: Portable AP chest radiograph TECHNIQUE: AP portable radiograph of the chest was obtained. INDICATION: Shortness of breath. Fever Comparison: CT abdomen pelvis from the same day. FINDINGS: LINES and TUBES: None CARDIOVASCULAR: Cardiac silhouette is normal in size. LUNGS/PLEURA: Thick bibasilar densities are seen, correspond to the CT finding from the same day. These represent atelectasis with likely superimposed mild pneumonia. Small pleural fluids. No discernible pneumothorax. OSSEOUS/OTHER: No displaced acute osseous process identified. IMPRESSION: Thick bibasilar densities are seen, correspond to the CT finding from the same day and representing atelectasis with likely superimposed mild pneumonia. Electronically signed by Finesse Ricketts 11-05-2024 7:49 PM
--- NOTE | 2024-11-06 07:39 | Surgery Progress Note ---
<Statement entered by Mukund Ortiz DO - 11/08/24 10:32> I saw and examined this patient. I agree with the plan Date of Service November 06, 2024 Assessment & Plan (1) Acute cholecystitis: Plan: POD#3 lap ronda with cholangiogram labs pending this AM. vitals stable, had temp 100.4 at 3p but no true fevers since CT scan yesterday reviewed, collection in gallbladder fossa. likely abscess given intraop findings gallbladder full of pus Will ask IR to see if they can drain this fluid today. keep NPO on IV abx for now Continue pulmonary toilet and OOB ambulating as tolerates Addendum: Spoke with our Radiology dept who is measuring the gallbladder fossa collection at 2.5cm. He does not appreciate characteristics of an abscess at this time, there is no gas in the fluid collection. It it also not in a safe location for drainage as it is high and medical in the hilum with surrounding bowel loops and vessels. Will recommend ongoing IV abx for now and see how she fairs clinically and symptomatically. Will initiate clears for today. Admission and Anticipated Discharge Date Admission Date: November 02, 2024 Subjective Patient reports not able to eat much food. Is able to keep down fluids but not much food. Taking anti-emetics. [place] warm with sweats overnight. Incontinent of urine yesterday. Physical Exam Physical Exam: awake/alert, no distress Gastrointestinal (Abdomen): Inspection/Auscultation: + abdominal surgical incision (c/d/i with dermabond) Percussion/Palpation: abdomen soft Results & Data Vital Signs (Past 12 Hours) Vital Signs Temp Pulse Pulse Resp BP BP Pulse Ox 11/06/24 07:08 98.8 F 90 18 107/69 93 11/06/24 04:08 98.1 F 87 18 100/62 92 11/06/24 04:07 98.1 F 87 18 100/62 92 11/06/24 02:03 11/05/24 23:05 99.0 F 103 H 18 115/71 93 11/05/24 20:00 98.6 F 109 H 18 131/78 94 O2 Del Method O2 Flow Rate 11/06/24 07:08 Nasal Cannula 2 11/06/24 04:08 Room Air 11/06/24 04:07 Room Air 11/06/24 02:03 Nasal Cannula 2 11/05/24 23:05 Room Air 11/05/24 20:00 Room Air PG Care Time/CCT Total # of Minutes Spent Total Time Spent with Patient: Total time spent is greater than 50% in coordination of care (as documented) at patient's floor/unit and/or counseling patient: Coding Level of Care Code 73296 Post Operative Follow-Up Diagnoses Acute cholecystitis K81.0
[2024-11-06 09:21] LABS: Hematocrit (blood only) 33.8 % (37.0-47.0); Hemoglobin 10.9 g/dl (12.0-16.0); Immature Granulocytes # (auto) 0.06 K/uL (0.01-0.20); Immature Granulocytes % (auto) 0.5 %; Mean Corpuscular Hemoglobin 27.9 pg (25.0-34.0); Mean Corpuscular Volume 86.4 fL (80.0-100.0); Platelet Count 316 K/uL (130-400); RDW Standard Deviation 41.1 fL (36.4-46.3); Red Blood Count 3.91 M/uL (4.20-5.40); White Blood Count 12.57 K/ul (4.8-10.8)
[2024-11-06 09:43] LABS: Alanine Aminotransferase 55.0 U/L (7-52); Alkaline Phosphatase 119.0 U/L (34-104); Anion Gap 5.0 (3-11); Bilirubin,Total 0.8 mg/dl (0.2-1.0); Blood Urea Nitrogen 8.0 mg/dl (6-23); Calcium 8.6 mg/dl (8.6-10.3); Carbon Dioxide 29.0 mmol/L (21-32); Chloride 105.0 mmol/L (98-107); Creatinine Clr Calc Pharmacy 97.4 ml/min; Glucose 112.0 mg/dl (70-99(Fasting)); Potassium 3.6 mmol/L (3.5-5.1); Sodium 139.0 mmol/L (136-145); Total Protein 5.8 gm/dl (6.0-8.3)
--- NOTE | 2024-11-06 12:46 | Hospitalist Progress Note ---
Date of Service November 06, 2024 Assessment & Plan (1) Acute cholecystitis: (2) Sepsis: (3) GERD (gastroesophageal reflux disease): (4) Diabetes mellitus, type 2: Plan 64 year old female presents to the ER with right upper quadrant pain. Hospitalist consulted initally but had signed off AM 11/04. Overnight 11/04 became septic with fevers, hypotension and tachycardia. #Sepsis / acute cholecystitis SIRS criteria met with tachycardia and WBC. Source = acute cholecystitis. Blood cultures no growth 48 hours Repeat blood cultures 11/05: pending s/p lap ronda with Dr. Alhaji Oliva 11/03 with negative IOP Sepsis overnight 11/04 given 1L bolus with maintenance fluids continued with poor p.o. intake - draw repeat blood cultures, switch antibiotics to cefepime and flagyl. Continued to spike fevers, CT A/P ordered showing 5.5cm fluid collection, Dr. Weller recommend to continue IV antibiotics. Per surgery - this is possibly an abscess but smaller than orgianlly read - plan for continued IV abx and start clears LFTs downtrending, WBC downtreding, CRP rising. Trend CBC, CMP and CRP #T2DM - continue SSI, resume metformin at discharge #GERD - Continue pantoprazole 40mg PO BID #Hypertension Continue metoprolol Discussed with patient to hold valsartan/HCTZ until PO intake returns to normal #Hyperlipidemia Continue rosuvastatin Thank you for allowing us to participate in the care of this patient, please reach out with any questions or concerns. Hospital Medicine will continue to follow. Admission and Anticipated Discharge Date Admission Date: November 02, 2024 Supervising Physician Co-Signing Physician Notes Attending Attestation: Chart reviewed, care plan d/w SULAIMAN Bonilla. I agree w/ the cruz components of her documentation. Mango Turner MD Subjective Patient seen prior to lunch - feeling hungry. pain is maybe slighlty better overall improved from yesterday Review of Systems Review of Systems: All systems reviewed & are unremarkable except as noted in Subjective Physical Exam Physical Exam: General: NAD, VS as above, Appears improved from prior days Resp: normal respiratory effort, lungs diminished in bases CV: RRR, no murmur, Abd: normal bowel sounds, soft, incision c/d/i Extremities: Moves all extremities, no edema Neuro: A&O x3, Results & Data Results & Data Vital Signs (Past 12 Hours) Vital Signs Temp Pulse Pulse Resp BP BP Pulse Ox 11/06/24 12:38 98.6 F 102 H 16 109/66 90 11/06/24 09:28 102 H 113/70 91 11/06/24 07:08 98.8 F 90 18 107/69 93 11/06/24 04:08 98.1 F 87 18 100/62 92 11/06/24 04:07 98.1 F 87 18 100/62 92 11/06/24 02:03 O2 Del Method O2 Flow Rate 11/06/24 12:38 Nasal Cannula 2 11/06/24 09:28 Nasal Cannula 2 11/06/24 07:08 Nasal Cannula 2 11/06/24 04:08 Room Air 11/06/24 04:07 Room Air 11/06/24 02:03 Nasal Cannula 2 Laboratory Results cbc, chemistry , crp and LFTs rveiewed PG Care Time/CCT Total # of Minutes Spent Total Time Spent with Patient: Total time spent is greater than 50% in coordination of care (as documented) at patient's floor/unit and/or counseling patient: Coding Level of Care Code 27357 SUB INP/OBS CARE 2MIN Diagnoses Acute cholecystitis K81.0 Sepsis A41.9 Gastroesophageal reflux disease, unspecified whether esophagitis present K21.9 Esophagitis presence: esophagitis presence not specified Type 2 diabetes mellitus without complication, unspecified whether terminal gauger supervisor insulin use E11.9 Diabetes mellitus complication status: without complication Diabetes mellitus terminal gauger supervisor insulin use: unspecified terminal gauger supervisor insulin use status (3) GERD (gastroesophageal reflux disease) Esophagitis presence: esophagitis presence not specified Qualified Code(s): K21.9 - Gastro-esophageal reflux disease without esophagitis (4) Diabetes mellitus, type 2 Diabetes mellitus complication status: without complication Diabetes mellitus intermediate insulin use: unspecified intermediate insulin use status Qualified Code(s): E11.9 - Type 2 diabetes mellitus without complications
[2024-11-06 14:54] VITALS: RESP 18
[2024-11-07] MEDS: KETOROLAC TROMETHAMINE 15 MG/ML VIAL IV PRN (07:01)
[2024-11-07 07:09] LABS: Hematocrit (blood only) 32.1 % (37.0-47.0); Hemoglobin 10.6 g/dl (12.0-16.0); Immature Granulocytes # (auto) 0.06 K/uL (0.01-0.20); Immature Granulocytes % (auto) 0.5 %; Mean Corpuscular Hemoglobin 27.6 pg (25.0-34.0); Mean Corpuscular Volume 83.6 fL (80.0-100.0); Platelet Count 349 K/uL (130-400); RDW Standard Deviation 39.2 fL (36.4-46.3); Red Blood Count 3.84 M/uL (4.20-5.40); White Blood Count 11.72 K/ul (4.8-10.8)
[2024-11-07 07:28] VITALS: BP 122/76; PULSE 94; TEMP 98.6
[2024-11-07 07:30] LABS: Alanine Aminotransferase 38.0 U/L (7-52); Albumin Globulin Ratio 1.0 (0.9-2); Alkaline Phosphatase 107.0 U/L (34-104); Anion Gap 7.0 (3-11); Bilirubin,Total 0.5 mg/dl (0.2-1.0); Blood Urea Nitrogen 7.0 mg/dl (6-23); Calcium 8.5 mg/dl (8.6-10.3); Carbon Dioxide 27.0 mmol/L (21-32); Chloride 106.0 mmol/L (98-107); Creatinine Clr Calc Pharmacy 100.5 ml/min; Globulin 2.8 gm/dl (2.5-4.0); Glucose 95.0 mg/dl (70-99(Fasting)); Potassium 3.3 mmol/L (3.5-5.1); Sodium 140.0 mmol/L (136-145); Total Protein 5.6 gm/dl (6.0-8.3)
[2024-11-07] MEDS: POTASSIUM CHLORIDE CRTAB 20 MEQ TABCR PO STA (09:05)
--- NOTE | 2024-11-07 09:17 | Surgery Progress Note ---
<Statement entered by Mukund Ortiz, - 11/08/24 10:31> I saw and examined this patient. I agree with the plan Date of Service November 07, 2024 Assessment & Plan (1) Acute cholecystitis: Plan: POD#4 lap ronda with cholangiogram WBC 11.7, Hbg 10.6, Tb 0.5, AST 15, ALT 38, Alkp 107. Vitals stable, no true fevers >24hrs. She remains on 2L Patient feeling well overall. Pain tolerable. Does not want any oxycodone given side effects Abdomen soft with expected tenderness, incisions c/d/i Will trial advancing diet this AM and see how she fairs. May shower Appreciate hospitalists assistance with patient, will need to try to wean off the oxygen. continue OOB ambulating/pulmonary toilet On IV abx, plan to transition to orals at home Will check up on patient again this afternoon Admission and Anticipated Discharge Date Admission Date: November 02, 2024 Subjective Patient reports some hallucinations correlated with taking the oxycodone, hearing music and seeing shapes on the ceiling tiles when eyes closed. Since no longer taking the oxycodone this has passed. She is hungry. Did have en episode of emesis yesterday evening she believes related to the clears but no further n/v this AM and wants to try food. She is passing gas. No BM. She is ambulating. No SOB but still on supplemental O2. She said she runs a little lower ever since she had covid in the past. Really wants to shower. Physical Exam Physical Exam: awake/alert, no distress Respiratory: on supplemental O2. breathing and respirations normal Gastrointestinal (Abdomen): Inspection/Auscultation: + abdominal surgical incision (c/d/i with dermabond) Percussion/Palpation: + abdomen tender (expected post op discomfort, primarily RUQ) and abdomen soft Results & Data Vital Signs (Past 12 Hours) Vital Signs Temp Pulse Resp BP Pulse Ox O2 Del Method O2 Flow Rate 11/07/24 07:10 Nasal Cannula 2 11/07/24 07:04 98.6 F 94 H 18 122/76 92 Nasal Cannula 2.0 11/06/24 23:10 99.9 F H PG Care Time/CCT Total # of Minutes Spent Total Time Spent with Patient: Total time spent is greater than 50% in coordination of care (as documented) at patient's floor/unit and/or counseling patient: Coding Level of Care Code 98023 Post Operative Follow-Up Diagnoses Acute cholecystitis K81.0
[2024-11-07 09:22] LABS: Magnesium 1.9 mg/dl (1.7-2.4)
[2024-11-07 11:46] VITALS: O2SAT 95
--- NOTE | 2024-11-07 12:38 | Hospitalist Progress Note ---
Date of Service November 07, 2024 Assessment & Plan (1) Acute cholecystitis: (2) Sepsis: (3) GERD (gastroesophageal reflux disease): (4) Diabetes mellitus, type 2: (5) Atelectasis of both lungs: (6) Hypokalemia: (7) Hypertension: Plan 64yo female who was admitted for acute cholecystitis. Underwent lap ronda by Dr Ortiz on 11/03. Intraop cholangiogram without choledocholithiasis. Post-operatively, on the night of 11/04, she became septic with fevers, hypotension and tachycardia. #Sepsis 2nd to acute cholecystitis - -resolved -wbc count nearly normal -blood cx's x 4 sets negative -cefepime/flagyl to be converted to PO augmentin at discharge -if there was any basilar pneumonia the augmentin will cover for such #T2DM - -resume metformin at discharge #GERD - -Continue pantoprazole 40mg PO BID #Hypertension - -Continue metoprolol -hold valsartan/HCTZ at discharge as BPs have been well-controlled without this medicine -check BP at home daily; keep a log #Hyperlipidemia - -Continue rosuvastatin -LFTs have returned to normal #hypokalemia - -level 3.3 today -give 20meq of K-dur now, then send home with prescription for K-dur 20meq daily x 3 additional days starting 11/08 #atelectasis - -clinically on exam and radiographically -supplemental O2 has been weaned off -O2 sats with walking today - 92% or greater in room air -doubt pneumonia; however, if there is some element of infection, augmentin for her gall bladder should provide adequate coverage for the lungs -recommended she use her incentive spirometer frequently over the next week -given the dense consolidations of the bases on imaging would advise repeat cxr in 6 weeks to ensure normalization care d/w SULAIMAN Langston for gen surgery added medical recommendations to her d/c instructions called in K-dur x 3 days from medical standpoint ok for d/c home today Admission and Anticipated Discharge Date Admission Date: November 02, 2024 Subjective patient feeling much better tolerating solids no nausea or emesis passing plenty of flatus; still no stool, however abdominal pain/discomfort tolerable she denies any dyspnea or dyspnea on exertion I had staff walk her in the hallway - sats stayed 92% or greater the entire stay she relates how she had a severe case of COVID several years ago but fortunately did not have any fibrosis from her illness 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 [employer] Review of Systems Review of Systems: gen - no fevers or chills cv - no chest pain pulm - no significant cough Physical Exam Constitutional: gen - pleasant, NAD, looks well mouth - MMM neck - no JVD heart - RRR, s1 s2, no murmur lungs - significantly decreased BS both bases, about 1/[address] up back; no rales; no wheeze; no increased work of breathing abd - soft NT ND BS+; incisions clean ext - no edema, pulses 2+ b/l Results & Data Results & Data Vital Signs (Past 12 Hours) Vital Signs Temp Pulse Resp BP Pulse Ox O2 Del Method O2 Flow Rate 11/07/24 11:44 18 95 Room Air 11/07/24 09:45 18 92 Room Air 11/07/24 07:10 Nasal Cannula 2 11/07/24 07:04 37.0 C 94 H 18 122/76 92 Nasal Cannula 2.0 Laboratory Results Laboratory Results - last 24 hr 11/06/24 11/06/24 11/07/24 16:36 20:34 06:33 WBC 11.72 H RBC 3.84 L Hgb 10.6 L Hct 32.1 L MCV 83.6 MCH 27.6 MCHC 33.0 RDW Std Deviation 39.2 RDW Coeff of Dylon 13.0 Plt Count 349 MPV 8.9 L Immature Gran % (Auto) 0.5 Neut % (Auto) 73.0 Lymph % (Auto) 11.5 [place] % (Auto) 8.6 Eos % (Auto) 6.1 Baso % (Auto) 0.3 Neut # (Auto) 8.54 H Lymph # (Auto) 1.35 [place] # (Auto) 1.01 H Eos # (Auto) 0.72 H Baso # (Auto) 0.04 Immature Gran # (Auto) 0.06 Sodium 140 Potassium 3.3 L Chloride 106 Carbon Dioxide 27 Anion Gap 7 BUN 7 Creatinine 0.63 Est Cr Clr Drug Dosing 100.5 eGFR 100.24 BUN/Creatinine Ratio 11.1 Glucose 95 POC Glucose 103 H 101 H Calcium 8.5 L Magnesium 1.9 Total Bilirubin 0.5 AST 15 ALT 38 Alkaline Phosphatase 107 H C-Reactive Protein 23.05 H Total Protein 5.6 L Albumin 2.8 L Globulin 2.8 Albumin/Globulin Ratio 1.0 11/07/24 11/07/24 07:32 11:24 WBC RBC Hgb Hct MCV MCH MCHC RDW Std Deviation RDW Coeff of Dylon Plt Count MPV Immature Gran % (Auto) Neut % (Auto) Lymph % (Auto) [place] % (Auto) Eos % (Auto) Baso % (Auto) Neut # (Auto) Lymph # (Auto) [place] # (Auto) Eos # (Auto) Baso # (Auto) Immature Gran # (Auto) Sodium Potassium Chloride Carbon Dioxide Anion Gap BUN Creatinine Est Cr Clr Drug Dosing eGFR BUN/Creatinine Ratio Glucose POC Glucose 99 94 Calcium Magnesium Total Bilirubin AST ALT Alkaline Phosphatase C-Reactive Protein Total Protein Albumin Globulin Albumin/Globulin Ratio PG Care Time/CCT Total # of Minutes Spent Total Time Spent with Patient: Total time spent is greater than 50% in coordination of care (as documented) at patient's floor/unit and/or counseling patient: Coding Level of Care Code 88331 SUB INP/OBS CARE 3/50MIN Diagnoses Acute cholecystitis K81.0 Sepsis A41.9 Gastroesophageal reflux disease, unspecified whether esophagitis present K21.9 Esophagitis presence: esophagitis presence not specified Type 2 diabetes mellitus without complication, unspecified whether mast maker insulin use E11.9 Diabetes mellitus complication status: without complication Diabetes mellitus custodial insulin use: unspecified custodial insulin use status Atelectasis of both lungs J98.11 Hypokalemia E87.6 Primary hypertension I10 Hypertension type: primary hypertension (3) GERD (gastroesophageal reflux disease) Esophagitis presence: esophagitis presence not specified Qualified Code(s): K21.9 - Gastro-esophageal reflux disease without esophagitis (4) Diabetes mellitus, type 2 Diabetes mellitus complication status: without complication Diabetes mellitus custodial insulin use: unspecified custodial insulin use status Qualified Code(s): E11.9 - Type 2 diabetes mellitus without complications (7) Hypertension Hypertension type: primary hypertension Qualified Code(s): I10 - Essential (primary) hypertension
--- NOTE | 2024-11-08 13:32 | Discharge Summary ---
Date of Service November 07, 2024 Principal Diagnosis acute cholecystitis s/p laparoscopic cholecystectomy Discharge Exam awake/alert, no distress Respiratory normal respiratory effort Gastrointestinal (Abdomen) Inspection/Auscultation: + abdominal surgical incision (c/d/i with dermabond) Percussion/Palpation: + abdomen tender (expected post op discomfort, primarily RUQ) and abdomen soft Discharge Data Allergies Allergy/AdvReac Type Severity Reaction Status Date / Time naproxen AdvReac Intermediate Increases Verified 11/02/24 17:21 heart rate Consultations 11/02/24 18:49 ED Decision to Admit Stat 11/02/24 19:34 Consult Hospitalist Routine 11/04/24 23:08 Consult Medical [Consult Internal Medicine] Stat 11/04/24 23:16 Consult Internal Medicine Routine Procedures Performed Operation Date: 11/03/24 10:30 Actual Procedures p Laparoscopic Cholecystectomy with Cholangiogram(Not Applicable) - Mukund Ortiz, Ordered Studies 11/02/24 15:55 CT abd pelvis IV con only Stat 11/03/24 [place] cholangiogram OR Routine 11/05/24 15:26 CT Abd and Pelvis [CT abd pelvis IV con only] Urgent Hospital Course (1) Acute cholecystitis: This is a 64y F with a PMH of JANETTE, DM2, HTN, GERD, who presents to the [facility] on 11/02/24 with abdominal pain. Workup revealed findings concerning for acute cholecystitis. The patient was admitted and kept NPO with IVF and IV abx. The hospitalist service was consulted for the duration of her stay for assistance with medical management. On 11/03 the patient went to the OR with Dr. Matt Oliva for a laparoscopic cholecystectomy with intraop cholangiogram. The patient tolerated the procedure well, see op note for full details. Post operatively the patient had some intermittent low grade temps with associated abdominal pain and low appetite. A CT scan was performed that showed some fluid in the gallbladder fossa. Also showed atelectasis We discussed the findings with our IR doctor who stated the collection was too small and in a risky location to place a drain, therefore we opted to continue with IV abx & supportive care. The patient's WBC slowly downtrended and her LFTs by time of discharge were ultimately unremarkable. On 11/06-11/07 the patients diet was advanced as she tolerated and her pain was improved. She remained afebrile for over 48 hours. She was instructed to follow up in the office in 2 weeks and complete a 5 day course of oral antibiotics. Total Time Total Time Spent Total Time Spent (In Minutes): 20 Discharge Plan Discharge Items Patient Disposition: Home - Self-Care Reason For Visit: [place] Discharge Diagnosis: laparoscopic cholecystectomy Condition on Discharge: Fair Activity: Per Instructions section Lifting: No more than 10 pounds Bathing Comment: you can shower. No soaking in pools, bath, hot tubs, or beaches x2 weeks Exercise/Sports: Wait until after follow-up appointment Driving/Machine Use: no driving if taking narcotics for pain Non-emergency contact: Surgeon Call non-emergency contact if: you have any medication questions, your symptoms worsen, your temperature is above 101.5, your wound has increased redness, your wound has increased drainage and your wound pain has increased Follow-up/Referrals: Carmen Rey DO [Primary Care Provider] - Mukund Ortiz DO [Physician] - 11/15/24 9:40 am ( follow up in 2 weeks ) Diet: Regular and Carb Consistent or DM2 Addtl Attending Provider Instructions: SPECIAL CARE INSTRUCTIONS: * Dressing: You have skin glue, called Dermabond, in place over your incisions. You may shower with this on. Please do NOT pick at this as it will tend to fall off on its own within the next 7-10 days * You may shower 11/04/2024 . NO soaking in bath tubs, hot tubs, pools or beaches for 2 weeks * No lifting greater than 10lbs. No exercise until cleared by surgeon. Light walking is accepted. * No driving while taking narcotic pain medication * No drinking alcohol while taking narcotic pain medication * May use Ibuprofen/Tylenol over the counter for pain as tolerated. Do not exceed 3grams of Tylenol per 24 hours * Expect some swelling and bruising. * Diet - resume your regular diet * Please complete the full course of antibiotic prescribed to you Call your doctor if: * Temperature above 101 degrees, nausea/vomiting, fever/chills * Pain not relieved by pain medicine ordered * There is increased drainage or redness from any incision * You have any unanswered questions or concerns [phone]. FOLLOW UP VISIT: If not already scheduled, please call the office for a follow-up visit. Office [facility] [employer] Provider Instructions: Hospital Medicine recommendations: - Please hold your valsartan - Hydrochlorothiazide blood pressure medicine -this has been on hold during your illness and your blood pressures have been very normal without it - Check your blood pressure once or twice daily; keep a log of your blood pressure readings; please show these to your family doctor - Plan to see your family doctor in the next 5-7 days so that your blood pressure can be rechecked, you can have repeat labs, etc. - Potassium supplement - take 20meq once daily x 3 days starting 11/08/24 - Please continue your incentive spirometer device for the next week or so; this will help with opening the air sacs at the bottom of the lungs -walking as tolerated also helps with the air sac issue (also known as "atelectasis") - Please have your family doctor repeat a chest x-ray in about 6 weeks to ensure the bottom portions of the lungs have returned to normal radiographically -as we discussed, there is a slight possibility that some of the x-ray findings of the bottom of the lungs could be from pneumonia -more likely, however, is that the issue was atelectasis - Know that the most common side effect of the antibiotic you will take at home is diarrhea -if you develop severe diarrhea - more than 3 liquid stools in 24 hours - please call your family doctor It was our pleasure to care for you! Pending Studies at Discharge: Yes Studies:: surgical pathology Stand-Alone Forms: My [facility], Work/School Release, Smoking Cessation Medications and DC Order Prescriptions: New oxycodone 5 mg tablet 5 mg PO Q6H PRN (Reason: pain) Qty: 12 0RF Rx Instructions: Initial Therapy post surgery potassium chloride 20 mEq tablet extended release 20 meq PO DAILY 3 Days Qty: 3 0RF Rx Instructions: start 11/08/24 Continued metformin 500 mg tablet 1,000 mg PO BID Qty: 360 1RF Rx Instructions: 1,000 mg PO twice a day; pantoprazole 40 mg tablet,delayed release (DR/EC) 40 mg PO BID Qty: 180 1RF rosuvastatin 10 mg tablet 10 mg PO HS metoprolol succinate 100 mg tablet extended release 24 hr 100 mg PO QAM (DME) blood-glucose meter [OneTouch Verio Flex Start] Kit See Rx Instructions .Route Qty: 1 0RF Rx Instructions: Check blood sugar once daily and as needed (DME) OneTouch Verio test strips Strip See Rx Instructions .Route Qty: 100 3RF Rx Instructions: Check blood sugar once daily and as needed (DME) Blood Glucose Test Strip See Rx Instructions .ROUTE .MEDSUPPLY Qty: 100 1RF Rx Instructions: As directed. Testing BBS TID Dx: R73.9 (DME) blood-glucose meter [Blood Glucose Monitoring] Kit See Rx Instructions .ROUTE .MEDSUPPLY Qty: 1 0RF Rx Instructions: As directed Testing TID Dx: R73.9 ibuprofen [Motrin IB] 200 mg capsule 400 mg PO HS acyclovir [Zovirax] 5 % ointment 1 applic topical 6XD PRN (Reason: Cold Sores) Qty: 30 0RF docusate sodium [Colace] 100 mg Capsule 100 mg PO DAILY magnesium 250 mg Tablet 250 mg PO DAILY lysine 500 mg Tablet 500 mg PO DAILY cholecalciferol (vitamin D3) [Vitamin D3] 25 mcg (1,000 unit) Capsule 0 mcg PO DAILY Rx Instructions: PT UNSURE OF STRENGTH tirzepatide 12.5 mg/0.5 mL pen injector 12.5 mg subcut WK Rx Instructions: MONDAYS Held valsartan-hydrochlorothiazide 160-12.5 mg tablet 1 tab PO DAILY Qty: 90 1RF Hold Instructions: hold unless instructed by your family doctor to resume Discharge Orders: Discharge Order (Routine); Ordered 11/07/24 Ordered By: Pao Kent/Other Patient Handouts: Atelectasis, Using an Incentive Spirometer Admission Data Admit Date/Time: 11/02/24 19:38 Attending Provider: Mukund Ortiz Admit Provider: Mango Bueno Primary Care Provider: Carmen Rey Other Providers: Mukund Ortiz; Av Weller; Lily Quiroga Other Interventions: Discharge Summary Assessment (RN) Last Done: 11/07/24 14:50 Coding Level of Care Code 51374 IN/OBS DISCH 30 MIN/LESS Diagnoses Acute cholecystitis K81.0
--- NOTE | 2024-11-10 09:21 | Coding Query ---
PRESENT ON ADMISSION QUERY To promote full compliance with coding requirements relating to pateint care, physician participation is requested in all cases of event decorator uncertainty. Please assist us with the question(s) below: Please place an X within the parenthesis (x). The following diagnosis(es) listed in this patient's medical record require physician assistance to determine if they were present on admission (POA) or not. Please advise for each diagnosis whether it was present on admission, not present on admission, or if it was clinically undetermined. 1. SEPSIS 2ND TO ACUTE CHOLECYSTITIS (documentation of Sepsis begins on the 11/02 Hospitalist Consultation with documentation of Source - acute cholecystitis): ( ) Present On Admission ( x) Not Present On Admission ( ) Clinically Undetermined Thank you Ju Davis *Definition of the present on admission (POA)-Present on admission is defined as present at the time the order for inpatient admission occurs. Conditions that develop during an outpatient encounter prior to a written order for inpatient admission (including emergency department, observation, or outpatient surgery) are considered present on admission. JOED
--- NOTE | 2024-11-10 09:47 | Coding Query ---
CODING QUERY To promote full compliance with coding requirements relating to patient care, provider participation is requested in all cases of oil filters inspector uncertainty. Please assist us with the question(s) below: Coding Question(s): There is documentation of possible abscess, starting on the 11/06 Surgery Progress Note there is documentation of, "Acute cholecystitis: Plan: POD#3 lap ronda with cholangiogram labs pending this AM. vitals stable, had temp 100.4 at 3p but no true fevers since CT scan yesterday reviewed, collection in gallbladder fossa. likely abscess given intraop findings gallbladder full of pus Will ask IR to see if they can drain this fluid today. keep NPO on IV abx for now Continue pulmonary toilet and OOB ambulating as tolerates Addendum: Spoke with our Radiology dept who is measuring the gallbladder fossa collection at 2.5cm. He does not appreciate characteristics of an abscess at this time, there is no gas in the fluid collection. It it also not in a safe location for drainage as it is high and medical in the hilum with surrounding bowel loops and vessels. Will recommend ongoing IV abx for now and see how she fairs clinically and symptomatically. Will initiate clears for today", and the 11/06 Hospitalist Progress Note, documents, "Sepsis overnight 11/04 given 1L bolus with maintenance fluids continued with poor p.o. intake - draw repeat blood cultures, switch antibiotics to cefepime and flagyl. Continued to spike fevers, CT A/P ordered showing 5.5cm fluid collection, Dr. Weller recommend to continue IV antibiotics. Per surgery - this is possibly an abscess but smaller than orgianlly read - plan for continued IV abx and start clears LFTs downtrending, WBC downtreding, CRP rising.", and no further documentation of abscess, with the Discharge Summary documenting, " Post operatively the patient had some intermittent low grade temps with associated abdominal pain and low appetite. A CT scan was performed that showed some fluid in the gallbladder fossa. Also showed atelectasis We discussed the findings with our IR doctor who stated the collection was too small and in a risky location to place a drain, therefore we opted to continue with IV abx & supportive care". 1. Please specify below, in your clinical opinion, regarding possible abscess: (x ) Possible Abscess was Present on Admission. Please specify further the location of the possible abscess:___in gallbladder at admission, in the bed of the prior GB location after GB removal at surgery. Known potential occurrence in this case. ( ) Possible Abscess was Not Present on Admission, and is an Intra-Operative Complication. Please specify further the location of the possible abscess: ( ) Possible Abscess was Not Present on Admission, and is Post Operative Complication. Please specify further the location of the possible abscess: ( ) Possible Abscess was Not Present on Admission, and is NOT an Operative Complication. Please specify further the location of the possible abscess: ( ) Possible Abscess was Ruled-Out and there was Fluid only in the gallbladder fossa. Please Specify further below: ( ) fluid was an intra-operative complication ( ) fluid was a post-operative complication ( ) fluid was NOT an operative complication ( ) Other Please Specify, and please specify if any Intra-Operative, Post- Operative or No Operative Complication 2. Please Specify below, in your clinical opinion, regarding the Sepsis overnight 11/04: ( ) the Sepsis overnight 11/04 was a Complication of the procedure during this admission. Please specify the most likely source of Sepsis overnight 11/04: ( ) the Sepsis overnight 11/04 was NOT a Complication from the procedure during this admission. Please specify the most likely source of Sepsis overnight 11/04_consequence of the patient's illness. Gallbladder full of pus at surgery ( ) the Sepsis overnight 11/04 was Other: Please Specify ( ) the Sepsis overnight did not occur/ there was no additional Sepsis after the initial Sepsis documented by Hospitalist on 11/02 Physician's Response(s): Thank you Ju Davis Principal Diagnosis: "that condition established after study, to be chiefly responsible for occasioning the admission of the patient to the hospital for care." Co-Existing Principal Diagnosis: "when two or more diagnoses equally meet the criteria for principal diagnosis as determined by the circumstances of admission, diagnostic work up, and/or therapy provided, and the Alphabetic Index, Tabular List, or another coding guideline does not provide sequencing direction, any one of the diagnoses may be sequenced first." "When the physician has documented what appears to be a current diagnosis in the body of the record, but has not included the diagnosis in the final diagnostic statement, the physician should be asked whether the diagnosis should be added." (Source Coding [facility] 2 QTR90. p3-4) HUSSAIN
== END 2024-11-07 15:05 | disposition home or self-care (01) | DRG 417 ==
LOC: ED 15:40 → SUATTDRO 19:38 → 3N 19:38